=== PATIENT | male | born 1950 | race Caucasian/White ===

== ENCOUNTER 2025-07-14 09:31 | Outpatient (AMB) | payer MEDICARE, SELFPAY ==
--- OUTSIDE RECORDS SUMMARY | 2024-05-05 05:30 | XMS_ITS ---
Author Organization [facility] Address [address] [address] Care Team Providers Care Hot Braider Name Role Phone Michoacano Senior Primary Care Provider UnavailFRANCY Hoyt Unavailable [phone] REASON FOR VISIT 1 month f/u Encounters Encounter Location Date Provider Diagnosis [facility] [address] [address] 05/05/2024 FRANCY ALVES Plan Of Treatment No Information Progress Notes * OWENSJoby Saini CDOB:[birth year] (74 yo M)Acc No.[id number]:05/05/2024 Progress Note Patient: Joby PALUMBO Provider: Lisseth Egan DPJoseph :1950 A ge:73 Y S ex:Male Date:05/05/2024 Phone: Address:[address] Pcp:Michoacano Senior Subjective: * Chief Complaints: * 1 . 1 month f/u. * Medical History: Objective: * Vitals: Assessment: Plan: * Treatment: * Billing Information: * Visit Code: * Procedure Codes: * Electronic signature of Dilan GUERREROPShikha on 07/14/2025 at 10:37 AM EDT Sign off status: Pending * Provider: Lisseth Egan DPM Date: 05/05/2024 Generated for Adriennei ng/Faxing/eTransmitting on: 07/14/2025 10:37 AM EDT
--- NOTE | 2025-07-14 09:28 | MHC.OFFVIS ---
Intake Visit Reasons: BPH urinary incontinence Intake Note: New Patient is present for urinary incontinence /BPH Urology Rx:Tamsulosin PVR:0 mls Blood Thinners:none Supervisor Glycerin Required: No Accompanied by: Self / Same As Patient Allergies duloxetine (From Cymbalta) Allergy (Mild, Verified 07/14/25 09:51) Unknown HPI Comments Details: Joby is a pleasant male. He is a patient of Dr. Durant. He is seen for the following urologic conditions - chronic pelvic floor pain - lower urinary tract symptoms Complicated patient Pelvic floor dysfunction Looking for obturator internus Botox injection Receives 200 units Botox for occipital migraines every three-month Discussed efficacy of pelvic floor Botox approximately 200 units Given current situation with inability to certain on hard surfaces and pelvic floor discomfort there is minimal risk to pelvic floor Botox Chronic pelvic floor pain Evaluated with [facility] Referred for pelvic floor physical therapy Has persistent obturator internus tightness Was recommended pelvic floor Botox Lower urinary tract symptoms Urinary urgency with weakness of stream On tamsulosin through [facility] Has episodes of dizziness Did discuss potential use of alfuzosin Was unable to tolerate this in the past secondary to the size of the tablets Would be suitable candidate for transurethral incision of the prostate Maximum Botox every 3 months per prescribing information 400 units Will organize pelvic floor Botox electrode stimulation, ultrasound guide Review of Systems Const Denies chills and Denies fever(s) Card Reports no additional complaints and Denies syncope Resp Denies cough GI Denies abdominal pain and Denies heartburn Reports as per HPI and Denies change in libido Neuro Denies syncope Psych Denies change in libido Endo Denies change in libido Physical Exam Const General: cooperative, healthy appearing, comfortable and no acute distress Orientation/consciousness: patient oriented x3 HEENT Face and sinus: Yes normal facial exam Mouth: moist mucous membranes Neck Neck: Yes normal visual inspection, Yes full ROM and Yes trachea midline Chest Chest palpation & inspection: normal inspection of the chest Resp Effort & Inspection: normal respiratory effort, able to speak in complete sentences and no respiratory distress GI Inspection: Yes normal to inspection Back/Spine/Pelvis Cervical Spine: normal cervical lordosis Thoracic/Lumbar Spine: thoracic and lumbar spine normal to inspection Skin General skin exam: no rashes or lesions noted Neuro General: patient oriented x3, gait normal, tone normal and moves all extremities Extrem General: Yes normal to inspection and Yes capillary refill normal Assessment & Plan Assessment & Plan (1) Chronic prostatitis/chronic pelvic pain syndrome: Code(s): N41.1 - Chronic prostatitis; G89.4 - Chronic pain syndrome Category: Medical (2) Weak urinary stream: Code(s): R39.12 - Poor urinary stream Category: Medical Plan Risks, benefits and alternatives to therapy were discussed. These include but are not limited to infection, bleeding, damage to local organs and tissues, need for further interventions. Anesthetic risks regarding cardiac arrhythmia, blood clots, and potential mortality were discussed. The patient understands the typical recovery time and the outpatient nature of the procedure. After consideration of these risks the patient gives full informed consent and they wish to move ahead with the procedure. - obturator internus pelvic floor injection with pudendal canal Patient Instructions: This note is constructed using voice recognition software. While every effort has been made to ensure accuracy pit steward errors may have been included. Imaging studies, laboratory and physical exam results were discussed and reviewed in detail. No major barriers to patient understanding were identified. An opportunity to ask questions regarding the treatment plan was provided. All questions were answered. The patient expressed understanding and agreement with the above treatment plan. The patient is aware they should contact our office by phone for worsening of their current condition or the appearance of new urologic symptoms. Compliance is encouraged with any medications and followup testing that is ordered. It is a privilege to participate in the urologic care of your patient. If you have any questions or concerns regarding treatment for the above conditions, or other urologic issues, please do not hesitate to contact me. The office telephone contact is [phone]. Sincerely, Dr Aaron Starkey MD, [facility] - [facility]rology Compassionate Specialist Care for the Genitourinary System Coding Level of Care Code New Pt Level 4 (28849) Diagnoses Chronic prostatitis/chronic pelvic pain syndrome N41.1; G89.4 Weak urinary stream R39.12
--- OUTSIDE RECORDS SUMMARY | 2025-07-14 10:37 | XMS_ITS | Encounter Summary ---
Author Organization [facility], Address [address] [place] [address] Phone Care Team Providers Care Cnc Lathe Machinist Name Role Phone Michoacano Lee MD Primary Care Provider [phone] Encounter Details Date Type Department Care Team (Late st Contact Info) Description 06/19/2023 Documentation Only [facility], [address] [place] [phone] Michoacano Lee MD [address] Social History Tobacco Use Types Packs/Day Years Used Date Smoking Tobacco: Never Assessed Sex and Gender Information Value Date Recorded Sex Assigned at Not on file Legal Sex Male 2:03 PM EST Gender Identity Not on file Sexual Orientation Not on file documented as of this encounter Plan of Treatment Not on file documented as of this encounter Visit Diagnoses Not on filedocumented in this encounter Care Teams Cnc Lathe Machinist Relationship Specialty Start Date End Date Michoacano Lee MD [place] [address] PCP - General Internal Medicine 01/25/22 documented as of this encounter
--- OUTSIDE RECORDS SUMMARY | 2025-07-14 10:37 | XMS_ITS | Clinical Summary ---
Author Organization [facility] Address [address] [place] [address] Care Team Providers Care Furnace Operator Name Role Phone Michoacano Lee MD Primary Care Provider [phone] Allergies Active Allergy Reactions Criticality Noted Date Comments Celecoxib Nausea Only,Other (S ee Comments) Medium 10/24/2019 epigastric pain if taken more often Epigastric pain Cephalexin Other (See Comments) Medium 10/24/2019 Other reaction(s): epigastric pain Epigastric pain Duloxetine Hcl 06/01/2023 seizure Tetracycline Other (See Comments) Medium 10/24/2019 Other reaction(s): GI bleed GI bleed Medications Medication Sig Dispensed Refills Start Date End Date Status predniSONE (DELTASONE) 1 MG tablet Take 1 tablet (1 mg total) by mouth daily. 90 tablet 3 06/01/2023 Active omeprazole (PriLOSEC) 40 MG capsule Take 1 capsule (40 mg total) by mouth. 0 01/08/2022 Active oxyCODONE (ROXICODONE) 5 MG immediate release tablet 0 01/08/2022 Active timolol (TIMOPTIC) 0.5 % ophthalmic solution 0 11/28/2021 Active zolpidem (AMBIEN) 10 MG tablet 0 09/20/2020 Active clonazePAM (KlonoPIN) 0.5 MG tablet Take 1 tablet (0.5 mg total) by mouth. 0 01/08/2022 Active latanoprost (XALATAN) 0.005 % ophthalmic solution 0 05/02/2023 Active tamsulosin (FLOMAX) 0.4 MG CAPS Take 1 capsule (0.4 mg total) by mouth. 0 12/04/2021 Active Social History Tobacco Use Types Packs/Day Years Used Date Smoking Tobacco: Never Smokeless Tobacco: Never Tobacco Cessation:Counseling Given: Not Answered Alcohol Use Standard Drinks/Week Comments Never 0 (1 standard drink = 0.6 oz pur e alcohol) Sex and Gender Information Value Date Recorded Sex Assigned at Not on file Gender Identity Not on file Sexual Orientation Not on file Job Start Date Occupation Industry Not on file Not on file Not on file Last Filed Vital Signs Vital Sign Reading Time Taken Comments Blood Pressure 143/92 08/30/2023 3:42 PM EDT Pulse 82 08/30/2023 3:42 PM EDT Temperature - - Respiratory Rate 16 08/30/2023 3:42 PM EDT Oxygen Saturation - - Inhaled Oxygen Concentration - - Weight 70.3 kg (155 lb) 08/30/2023 3:42 PM EDT Height 180.3 cm (5' 11 ) 08/30/2023 3:42 PM EDT Body Mass Index 21.62 08/30/2023 3:42 PM EDT Plan of Treatment Health Maintenance Due Date Last Done Comments Hepatitis C Screening 1949 Depression Screening 1961 Preventative Health Evaluation 1967 DTap / Tdap / Td (1 - Tdap) 1968 Colon Cancer Screening (Colonoscopy) 1994 Fall Risk Assessment 2014 Pneumococcal Vaccine (1 of 1 - PCV) 2014 COVID-19 Vaccine (4 - 2023-2 5 season) 2024 09/12/2021, 02/13/2021, 01/23/2021 RSV Adult > 60+ Yrs or (1 - 1-dose 75+ series) 2024 Influenza Vaccine (#1) 2025 08/27/2021 Shingrix-Zoster Vaccine Completed 10/18/20 18, 07/19/2018 Hepatitis B Vaccines Aged Out No long er eligible based on patient's age to complete this topic RSV Ped < 20 months Aged Out No longe r eligible based on patient's age to complete this topic Care Teams Furnace Operator Relationship Specialty Start Date End Date Michoacano Lee MD [address] [place] [address] PCP - General Bean Sorter 06/01/23
--- OUTSIDE RECORDS SUMMARY | 2025-07-14 10:37 | XMS_ITS | Clinical Summary ---
Author Organization formerly [facility] Address [address] [place] [address] Care Team Providers Care Linux Systems Engineer Name Role Phone Michoacano Senior MD Primary Care Provider [phone] Rashel Cisneros [phone] Allergies Active Allergy Reactions Criticality Noted Date Comments Celecoxib Other (see comments) Medium 10/24/2019 Epigastric pain Cephalexin Other (see comments) Medium 10/24/2019 Epigastric pain Tetracycline Other (see comments) Medium 10/24/2019 GI bleed Medications oxyCODONE (ROXICODONE) 5 mg immediate release tablet oxycodone 5 mg tablet Active tamsulosin (FLOMAX) capsule tamsulosin 0.4 mg capsule Active clonazePAM (KlonoPIN) 0.5 mg tablet clonazepam 0.5 mg tablet Active betamethasone dipropionate 0.05 % lotion betamethasone dipropionate 0.05 % lotion Active EPICERAM lotion APPLY TO THE AFFECTED AREA(S) TWICE DAILY 5 06/03/20 19 Active gabapentin (NEURONTIN) 100 mg capsule Take 100 mg by mouth 4 (four) times a day. 100mg qid and 300mg at night Active timolol (BETIMOL) 0.5 % ophthalmic solution 1 drop 2 (two) times a day. Active gabapentin (NEURONTIN) 300 mg capsule Take 2 tb TID 180 capsule 2 10/27/20 19 Active tamsulosin (FLOMAX) capsule tamsulosin 0.4 mg capsule Active gabapentin (NEURONTIN) 100 mg capsule gabapentin 100 mg capsule Active oxyCODONE (ROXICODONE) 5 mg immediate release tablet oxycodone 5 mg tablet Active timolol (TIMOPTIC) 0.5 % ophthalmic solution timolol maleate 0.5 % eye drops Active VIVLODEX 5 mg capsule 09/10/20 19 Active sucralfate (CARAFATE) 1 gram tablet sucralfate 1 gram tablet prn Active betamethasone dipropionate 0.05 % lotion betamethasone dipropionate 0.05 % lotion Active betamethasone dipropionate (DIPROLENE) 0.05 % cream 01/05/20 20 Active ondansetron ODT (ZOFRAN-ODT) 4 mg disintegrating tablet 01/11/20 20 Active diazePAM (VALIUM) 5 mg tablet 03/25/20 20 Active zolpidem (AMBIEN) 10 mg tablet 09/20/20 Active varicella-zoster, recombinant, (SHINGRIX) 50 mcg/0.5 mL suspension for reconstitution vaccine Shingrix (PF) 50 mcg/0.5 mL intramuscular suspension, kit Active diclofenac sodium (VOLTAREN) 1 % gel diclofenac 1 % topical gel Active meloxicam (MOBIC) 15 mg tablet meloxicam 15 mg tablet Active Active Problems Problem Noted Date Diagnosed Date Neuropathy 10/24/2019 Family History Medical History Relation Comments Heart disease Father Stroke Father Cancer Mother Diabetes Paternal Grandmother Relation Status Comments Father Mother Paternal Grandmother Social History Tobacco Use Types Packs/Day Years Used Date Smoking Tobacco: Never Smokeless Tobacco: Never Comments:college Alcohol Use Standard Drinks/Week Comments Yes 0 (1 standard drink = 0.6 oz pur e alcohol) Sex and Gender Information Value Date Recorded Sex Assigned at Not on file Legal Sex Male 2:12 AM EST Gender Identity Not on file Sexual Orientation Not on file 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 file Not on file Not on file Last Filed Vital Signs Vital Sign Reading Time Taken Comments Blood Pressure 130/80 11/05/2019 12:57 PM EST Pulse 91 11/05/2019 12:57 PM EST Temperature - - Respiratory Rate - - Oxygen Saturation - - Inhaled Oxygen Concentration - - Weight 72.6 kg (160 lb) 01/28/2020 1:06 PM EST Height 180.3 cm (5' 11 ) 01/28/2020 1:06 PM EST Body Mass Index 22.32 01/28/2020 1:06 PM EST Plan of Treatment Health Maintenance Due Date Last Done Comments CT Colonography 1949 Colonoscopy 1949 Colorectal Cancer Screening 1949 FIT-DNA (Cologuard) 1949 FIT 1949 FOBT 1949 Flex Sigmoidoscopy - 5y 1949 HIV Screening 1949 DTaP,Tdap,and Td Vaccines (1 - Tdap) 1967 Pneumococcal Vaccine, 50+ Years (1 of 1 - PCV) 1999 COVID-19 Vaccine (4 - 2023-2 5 season) 2024 09/12/2021, 02/13/2021, 01/23/2021 Influenza Vaccine (#1) 2025 08/27/2021 Zoster Vaccines Completed 10/18/2018, 07/19/2018 HPV Vaccines Aged Out No longer eligi ble based on patient's age to complete this topic Hepatitis A Vaccines Aged Out No long er eligible based on patient's age to complete this topic Meningococcal Vaccine Aged Out No laura tyrell eligible based on patient's age to complete this topic Insurance [employer] MEDICARE PPO [facility] Care Teams Linux Systems Engineer Relationship Specialty Start Date End Date Michoacano Senior MD [address] [id number] PCP - General Internal Medicine 06/19/19 Rashel Cisneros [address] [facility] [address] [place] [address] 10/09/19
--- OUTSIDE RECORDS SUMMARY | 2025-07-14 10:37 | XMS_ITS | Clinical Summary ---
Author Organization [facility] Address [address] [place] [address] Phone Care Team Providers Care Lead Developer Name Role Phone Michoacano Senior MD Primary Care Provider [phone] Allergies Active Allergy Reactions Criticality Noted Date Comments Celecoxib Nausea Only,Unknown Medium 10/24/2019 epigastric pain if taken more often Epigastric pain Cephalexin Unknown Medium 10/24/2019 Other reaction(s): epigastric pain Epigastric pain Duloxetine Hcl 06/01/2023 seizure Tetracycline Unknown Medium 10/24/2019 Other reaction(s): GI bleed GI bleed Medications clonazePAM (KlonoPIN) 0.5 mg tablet Take 1 tablet (0.5 mg total) by mouth. 01/08/20 22 Active latanoprost (XALATAN) 0.005 % ophthalmic solution 05/02/20 23 Active omeprazole (PriLOSEC) [address] capsule Take 1 capsule (40 mg total) by mouth. 01/08/20 22 Active oxyCODONE (ROXICODONE) 5 mg immediate release tablet 01/08/20 22 Active predniSONE (DELTASONE) 1 mg tablet Take 1 tablet (1 mg total) by mouth 1 (one) time each day. 06/01/20 23 Active tamsulosin (FLOMAX) 0.4 mg 24 hr capsule Take 1 capsule (0.4 mg total) by mouth. 12/04/19 22 Active timolol (TIMOPTIC) 0.5 % ophthalmic solution 11/28/19 22 Active zolpidem (AMBIEN) 10 mg tablet 09/20/20 Active azelastine (ASTELIN) 137 mcg (0.1 %) nasal spray 01/17/20 Active onabotulinumtoxinA (BOTOX) 200 unit injection See Instructions, For IM injection for bruxism, # 1 kit, 3 Refills, Maintenance, 10/11/23 11:18:00 EST, [facility], Partial fill upon patient request if the prescription is for a schedule II opioid drug., 180, cm, 10/11/23 10:22:00 ES... 10/11/20 Active ondansetron ODT (ZOFRAN-ODT) 4 mg disintegrating tablet 01/11/20 Active sucralfate (CARAFATE) 1 gram tablet Take 1 tablet (1 g total) by mouth. Active aspirin 81 mg chewable tablet Chew 1 tablet (81 mg total) 1 (one) time each day. Active Immunizations Name Administration Dates Next Due [employer] SARS-CoV-2 COVID-19, mRNA, LNP-S, preservative free 09/12/2021,02/13/2021,01/23/2021 Surgical History Surgery Date Site/Laterality Comments TOTAL SHOULDER ARTHROPLASTY 2021 PROCEDURE:TOTAL SHOULDER REPLACEMENT OTHER SURGICAL HISTORY 10/2011 PROCEDURE:finger joint replacement FINGER HERNIA REPAIR KNEE ARTHROSCOPY Medical History Medical History Date Comments Stomach ulcer DX:Stomach ulcer Anxiety DX:Anxiety Cataracts, bilateral DX:Cataract s, bilateral Epilepsy ([facility] V24, [facility] V28) DX:Epilepsy ([facility]) Depression DX:Depression Glaucoma DX:Glaucoma History of blood clots DX:Histor y of blood clots Vertigo DX:Vertigo Seizure ([facility] V24, [facility] V28) DX:Seizure ([facility]);COMMENT:01/17 and 01/18 Vestibular migraine Ocular migraine Meniere disease Arthritis Seizures ([facility] V24, [facility] V28) Hyponatremia GERD (gastroesophageal reflux disease) Bleeding ulcer BPH (benign prostatic hyperplasia) Social History Tobacco Use Types Packs/Day Years Used Date Smoking Tobacco: Never Smokeless Tobacco: Never Alcohol Use Standard Drinks/Week Comments Never 0 (1 standard drink = 0.6 oz pur e alcohol) Interpersonal Safety Answer Date Record ed Physical Abuse 12/15/2024 Verbal Abuse 12/15/2024 Sex and Gender Information Value Date Recorded Sex Assigned at Male 12/04/2024 12:11 PM EST Legal Sex Male 8:52 AM EST Gender Identity Male 12/04/2024 12:11 PM EST Sexual Orientation Straight 12/04/2024 12 :11 PM EST Obstetrics History Last Filed Vital Signs Vital Sign Reading Time Taken Comments Blood Pressure 142/89 12/15/2024 11:04 AM EST Pulse 73 12/15/2024 11:04 AM EST Temperature 36.6 C (97.8 F) 12/15/2024 10:44 AM EST Respiratory Rate 14 12/15/2024 11:04 AM EST Oxygen Saturation 99% 12/15/2024 11:04 AM EST Inhaled Oxygen Concentration - - Weight 65.8 kg (145 lb) 12/15/2024 10:10 AM EST Height 180.3 cm (5' 11 ) 12/15/2024 10:10 AM EST Body Mass Index 20.22 12/15/2024 10:10 AM EST Plan of Treatment Health Maintenance Due Date Last Done Comments DTaP,Tdap,and Td Vaccines (1 - Tdap) 1968 Pneumococcal Vaccine: 50+ Years (1 of 1 - PCV) 1999 Cholesterol Screening (Lipid Panel) 10/29/2022 Falls Risk Assessment 10/29/2022 Hepatitis C Screening 10/29/2022 Medicare Annual Wellness Visit 10/29/2022 Social Influencers of Health Screening 10/29/2022 COVID-19 Vaccine (2023- season) 2024 10/17/2022, 03/31/2022, 09/12/2021, Additional history exists RSV Immunization Adult Patients (1 - 1-dose 75+ series) 2024 Depression Screening 11/26/2024 Influenza Vaccine (#1) 2025 , 09/03/2023, 09/14/2022, Additional history exists Colorectal Cancer Screening: Colonoscopy 12/15/2034 12/15/2024 Zoster Vaccines Completed 10/18/2018, 07/19/2018 HIB Vaccines Aged Out No longer eligi ble based on patient's age to complete this topic HPV Vaccines Aged Out No longer eligi ble based on patient's age to complete this topic Hepatitis A Vaccines Aged Out No long er eligible based on patient's age to complete this topic Hepatitis B Vaccines Aged Out No long er eligible based on patient's age to complete this topic IPV Vaccines Aged Out No longer eligi ble based on patient's age to complete this topic MMR Vaccines Aged Out No longer eligi ble based on patient's age to complete this topic Meningococcal ACWY Vaccine Aged Out N o longer eligible based on patient's age to complete this topic Meningococcal B Vaccine Aged Out No l onger eligible based on patient's age to complete this topic RSV Immunization Patients Under 20 months Aged Out No longer eligible based on patient's age to complete this topic Varicella Vaccines Aged Out No longer eligible based on patient's age to complete this topic Procedures Procedure Name Priority Date/Time Associated Diagnosis Comments COLONOSCOPY Routine 12/15/2024 10:43 AM EST Screen for colon cancer from Last 3 Months or Most Recently Relevant to Health Maintenance Results * COLONOSCOPY Anesthesia - MAC; [facility] ENDOSCOPY (12/15/2024 10:43 AM EST) Anatomical Region Laterality Modality Endoscopy 12/15/2024 10:0 7 AM EST Impressions 12/15/2024 10:44 AM EST - Diverticulosis in the left colon. - Non-bleeding internal hemorrhoids. - The examination was otherwise normal on direct and retroflexion views. - No specimens collected. Recommendation: - Discharge patient to home. - High fiber diet. - Continue present medications. - Return to my office PRN. Narrative 12/15/2024 10:44 AM EST [facility] GI Patient Name: Joby Owens Procedure Date: 12/15/2024 10:07 AM Date of : 1950 Age: 74 Room: ROOM 15 Gender: Male Note Status: Finalized Attending MD: Pierce Dela Cruz MD, Procedure Date No Time: 12/15/2024 Procedure: Colonoscopy Indications: Screening for colorectal malignant neoplasm Providers: Pierce Dela Cruz MD Referring MD: Pierce Dela Cruz MD Medicines: Monitored Anesthesia Care Complications: No immediate complications. Estimated Blood Loss: Estimated blood loss: none. Procedure: Pre-Anesthesia Assessment: - ASA Grade Assessment: III - A patient with severe systemic disease. - After reviewing the risks and benefits, the patient was deemed in satisfactory condition to undergo the procedure. After I obtained informed consent, the scope was passed under direct vision. Throughout the procedure, the patient's blood pressure, pulse, and oxygen saturations were monitored continuously.The Colonoscope was introduced through the anus and advanced to the cecum, identified by appendiceal orifice and ileocecal valve. The colonoscopy was performed without difficulty. The patient tolerated the procedure well. The quality of the bowel preparation was good. Findings: Multiple small and large-mouthed diverticula were found in the left colon. Non-bleeding internal hemorrhoids were found during retroflexion. The hemorrhoids were medium-sized. The exam was otherwise without abnormality on direct and retroflexion views. Procedure Code(s): --- Professional --- 15392, Colonoscopy, flexible; diagnostic, including collection of specimen(s) by brushing or washing, when performed (separate procedure) Diagnosis Code(s): --- Professional --- Z12.11, Encounter for screening for malignant neoplasm of colon CPT copyright 2020 [employer]. All rights reserved. The codes documented in this report are preliminary and upon delivery crew member review may be revised to meet current compliance requirements. Pierce Dela Cruz MD 12/15/2024 10:44:04 AM This report has been signed electronically.Pierce Dela Cruz MD Number of Addenda: 0 Note Initiated On: 12/15/2024 10:07 AM Scope In: Scope Out: Endoscopy Department at [facility] - [address] [place] [id number] Procedure Note Pierce Dela Cruz MD - 12/15/2024 [facility] GI Patient Name: Joby Owens Procedure Date: 12/15/2024 10:07 AM Date of : 1950 Age: 74 Room: ROOM 15 Gender: Male Note Status: Finalized Attending MD: Pierce Dela Cruz MD, Procedure Date No Time: 12/15/2024 Procedure: Colonoscopy Indications: Screening for colorectal malignant neoplasm Providers: Pierce Dela Cruz MD Referring MD: Pierce Dela Cruz MD Medicines: Monitored Anesthesia Care Complications: No immediate complications. Estimated Blood Loss: Estimated blood loss: none. Procedure: Pre-Anesthesia Assessment: - ASA Grade Assessment: III - A patient with severe systemic disease. - After reviewing the risks and benefits, thepatient was deemed in satisfactory condition to undergo the procedure. After I obtained informed consent, the scope was passed under direct vision. Throughout theprocedure, the patient's blood pressure, pulse, and oxygen saturations were monitored continuously.The Colonoscope was introduced through the anus and advanced to the cecum, identified by appendiceal orifice and ileocecal valve. The colonoscopy was performed without difficulty. The patient tolerated the procedure well. The quality of the bowel preparation was good. Findings: Multiple small and large-mouthed diverticula were found in the left colon. Non-bleeding internal hemorrhoids were found during retroflexion. The hemorrhoids were medium-sized. The exam was otherwise without abnormality ondirect and retroflexion views. Procedure Code(s): --- Professional --- 13549, Colonoscopy, flexible; diagnostic, including collection of specimen(s) by brushing or washing,when performed (separate procedure) Diagnosis Code(s): --- Professional --- Z12.11, Encounter for screening for malignantneoplasm of colon CPT copyright 2020 [employer]. All rights reserved. The codes documented in this report are preliminary and upon delivery crew member reviewmay be revised to meet current compliance requirements. Pierce Dela Cruz MD 12/15/2024 10:44:04 AM This report has been signed electronically.Pierce Dela Cruz MD Number of Addenda: 0 Note Initiated On: 12/15/2024 10:07 AM Scope In: Scope Out: Endoscopy Department at [facility] - [address] [place] [id number] IMPRESSION: - Diverticulosis in the left colon. - Non-bleeding internal hemorrhoids. - The examination was otherwise normal on directand retroflexion views. - No specimens collected. Recommendation: - Discharge patient to home. - High fiber diet. - Continue present medications. - Return to my office PRN. us Pierce Dela Cruz MD GI~PROCEDURE ORDERABLES Final Result from Last 3 Months or Most Recently Relevant to Health Maintenance Insurance [employer] MEDICARE [employer]VANTAGE Care Teams Lead Developer Relationship Specialty Start Date End Date Michoacano Senior MD [address] [place] [address] PCP - General 06/01/23
--- OUTSIDE RECORDS SUMMARY | 2025-07-14 10:37 | XMS_ITS | Clinical Summary ---
Author Organization [facility] Address [address] [place] [address] Care Team Providers Care Live Games Dealer Name Role Phone Michoacano Lee MD Primary Care Provider [phone] Social History Tobacco Use Types Packs/Day Years Used Date Smoking Tobacco: Never Assessed Sex and Gender Information Value Date Recorded Sex Assigned at Not on file Legal Sex Male 12:47 AM EDT Gender Identity Not on file Sexual Orientation Not on file Plan of Treatment Health Maintenance Due Date Last Done Comments Hepatitis C Virus Screening 1950 DTaP/Tdap/Td Vaccines (1 - Tdap) 1968 Pneumococcal Vaccines 50+ (1 of 1 - PCV) 1999 Zoster (Shingles) Vaccine (1 of 2) 1999 COVID-19 Vaccine ( - 2023-2 5 season) 2024 RSV Vaccine 60 years and old er and Patients (1 - 1-dose 75+ series) 2024 Hepatitis B Vaccines Aged Out No long er eligible based on patient's age to complete this topic Care Teams Live Games Dealer Relationship Specialty Start Date End Date Michoacano Lee MD [address] [place] [id number] PCP - General Internal Medicine 03/01/23
== END 2025-07-14 10:28 | disposition home or self-care (01) ==
LOC: HO.HUSH 09:32
PROVIDERS: Visit Provider Urology
DX: N41.1 Chronic prostatitis (principal); G89.4 Chronic pain syndrome; R39.12 Poor urinary stream; Z13.9 Encounter for screening, unspecified
CPT/HCPCS: 99204

== ENCOUNTER → 2025-07-14 09:31 | Outpatient (BNVA) | payer MEDICARE, SELFPAY | PROVIDERS: Visit Provider Urology | DX: N41.1 Chronic prostatitis (principal); G89.4 Chronic pain syndrome; R39.12 Poor urinary stream | CPT/HCPCS: 51798; 81003; 99202 ==

== ENCOUNTER 2025-09-28 08:15 | Day surgery (SDC) | payer MEDICARE, SELFPAY ==
--- OUTSIDE RECORDS SUMMARY | 2024-04-04 07:00 | XMS_ITS ---
Author Organization [facility] Address [address] [place] [address] Care Team Providers Care Oracle Endeca Consultant Name Role Phone Michoacano Senior Primary Care Provider UnavailFRANCY Hoyt Unavailable [phone] Allergies Allergen (clinical drug ingredient) Drug/Non Drug Allergy documented on EMR Reaction Allergy Type Onset Date Status duloxetine Cymbalta Unknown Drug Allergy Active levetiracetam Keppra Unknown Drug Allergy Act carolann meclizine Meclizine HCl Unknown Drug Allergy Act carolann REASON FOR VISIT B/L cortisone injection Medications Medication SIG (Take, Route, Frequency, Duration) Notes Start Date End Date Status Lidocaine 5 % APPLY 1 PATCH ONCE A DAY EXTERNALLY TO BOTH FEET AND REMOVE AFTER 12 HOURS; Duration: 30 Not-Taking KlonoPIN Not-Taking Tamsulosin HCl 0.4 MG 1 capsule Orally O nce a day Not-Taking oxyCODONE-Acetaminophen 5-325 MG 1 tablet as needed Orally every 6 hrs Active predniSONE 1 MG 1 tablet Orally Once a day; Duration: 90 days 04/13/2023 Active Omeprazole 40 MG 1 capsule 30 minutes before morning meal Orally Once a day Active Timolol Maleate 0.5 % 1 drop into affect ed eye Ophthalmic Once a day Active clonazePAM 0.5 MG 1 tablet at bedtime Orally Once a day Active Latanoprost-Timolol Maleate 0.005-0.5 % 1 drop into affected eye Ophthalmic Once a day Active Ambien 10 MG 1 tablet at bedtime as needed Orally Once a day Active Vital Signs Temperature 96.6 degrees Fahrenheit 04/04/20 Heart Rate 68 /min 04/04/2024 Respiratory Rate 20 /min 04/04/2024 Height 71in in 04/04/2024 Weight 153.5 lbs 04/04/2024 BMI 21.41 kg/m2 04/04/2024 Encounters Encounter Location Date Provider Diagnosis [facility] [address] [facility] [place] [place] [address] 04/04/2024 FRANCY ALVES Plan Of Treatment No Information Progress Notes * Joby OWENS CDOB:[birth year] (74 yo M)Acc No.[id number]:04/04/2024 Progress Note Patient: Joby PALUMBO Provider: Lisseth Egan DPJoseph :1950 A ge:73 Y S ex:Male Date:04/04/2024 Phone: Address:[facility] [address], [id number] Pcp:Michoacano Senior Subjective: * Chief Complaints: * 1 . B/L cortisone injection. 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 SSNI stopped. ? chronic underlying hyponatremia 2021, Pulmonary Embolism and Deep Vein thrombosis ? provoked from shoulder surgery. 2021, COVID vaccinated X 5 ([employer]), Peripheral neuropathy-unknown origin of extremities, Vestibular migraines, Vertigo, hx of detached retina and vision changes. Ptosis of right eye. Light sensitivity, Facial nerve pain, Fatigue. 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 * Hospitalization/Major Diagno stic Procedure: s eizure due to hyponatremia 12/2021, PE and lower extremity DVT 05/2022, left shoulder replacement 04/2022, seizure 11/2023. * Family History: M other: , Rheumatoid Arthritis. * Social History: F ormer smoker-50yrs ago Alcohol use-1 beer/day No illicit drug use [facility]. Lives with . * Medications: T aking Ambien 10 MG Tablet 1 tablet at bedtime as needed Orally Once a day , Taking clonazePAM 0.5 MG Tablet 1 tablet at bedtime Orally Once a day , Taking Latanoprost-Timolol Maleate 0.005-0.5 % Solution 1 drop into affected eye Ophthalmic Once a day , Taking Omeprazole 40 MG Capsule Delayed Release 1 capsule 30 minutes before morning meal Orally Once a day , Taking Timolol Maleate 0.5 % Solution 1 drop into affected eye Ophthalmic Once a day , Taking oxyCODONE-Acetaminophen 5-325 MG Tablet 1 tablet as needed Orally every 6 hrs , Taking predniSONE 1 MG Tablet 1 tablet Orally Once a day , Not-Taking Tamsulosin HCl 0.4 MG Capsule 1 capsule Orally Once a day , Not-Taking Lidocaine 5 % Patch APPLY 1 PATCH ONCE A DAY EXTERNALLY TO BOTH FEET AND REMOVE AFTER 12 HOURS , Not-Taking KlonoPIN , Medication List reviewed and reconciled with the patient * Allergies: C ymbalta, Keppra, Meclizine HCl. Objective: * Vitals: W t:153.5lbs, Ht: 71in, BMI:21.41Index, HR:68/min, Temp:96.6F, RR:20/min, Ht-cm: 180.34, Wt-k.63 kg. Assessment: Plan: * Treatment: * Billing Information: * Visit Code: * Procedure Codes: * Electronic signature of CALEB ALVES D.P.M. on 09/23/2025 at 05:55 PM EDT Sign off status: Pending * Provider: Lisseth Egan DPJoseph Date: 0 04/04/2024 Generated for Rhea barrera/Justice/Marisa on: 1 05:55 PM EDT
--- OUTSIDE RECORDS SUMMARY | 2024-05-05 05:30 | XMS_ITS ---
Author Organization [facility] Address [address] [address] Care Team Providers Care Adapted Physical Education Specialist Name Role Phone Michoacano Senior Primary Care Provider UnavailFRANCY Hoyt Unavailable [phone] REASON FOR VISIT 1 month f/u Encounters Encounter Location Date Provider Diagnosis [facility] [address] [address] 05/05/2024 FRANCY ALVES Plan Of Treatment No Information Progress Notes * OWENS Joby CDOB:[birth year] (74 yo M)Acc No.[id number]:05/05/2024 Progress Note Patient: Joby PALUMBO Provider: Lisseth Egan DPJoseph :1950 A ge:73 Y S ex:Male Date:05/05/2024 Phone: Address:[address] Pcp:Michoacano Senior Subjective: * Chief Complaints: * 1 . 1 month f/u. * Medical History: Objective: * Vitals: Assessment: Plan: * Treatment: * Billing Information: * Visit Code: * Procedure Codes: * Electronic signature of Dilan GUERREROPShikha on 09/23/2025 at 05:55 PM EDT Sign off status: Pending * Provider: Lisseth Egan DPM Date: 0 05/05/2024 Generated for Adriennei ng/Faxing/eTransmitting on: 1 05:55 PM EDT
--- NOTE | 2025-09-23 14:18 | HO.ANESPROP2 ---
Documented by User: Dixie Watts NP 09/23/25 14:19 HPI - Anesthesia Eval Consult details Narrative: 74 yr old male for Cystoscopy Bladder Botox Injection ?Elena's per PCP note 03/2025: pt reports ongoing dizziness PMFSH Active Problems Active Problems: All Active Problems Chronic prostatitis/chronic pelvic pain syndrome (Acute) Weak urinary stream (Acute) Past Medical History Medical History (Updated 09/24/25 @ 14:15 by Christy Nixon RN) Hyperlipidemia Difficulty swallowing GERD (gastroesophageal reflux disease) AAA (abdominal aortic aneurysm) without rupture Seizures HTN (hypertension) Hx of steroid therapy History of sigmoidoscopy Cerebral aneurysm Sleep apnea Hearing loss Insomnia Anxiety BPH (benign prostatic hyperplasia) Neuropathy DJD (degenerative joint disease) Surgical History Surgical History (Updated 09/24/25 @ 14:16 by Christy Nixon RN) Hx of melanoma excision Hx of bilateral cataract extraction History of left shoulder replacement History of release of tendon Hx of detached retina repair History of esophagogastroduodenoscopy (EGD) H/O colonoscopy Social History Social History Patient Tobacco Use Status: Former Tobacco user Have you been hit, kicked, punched, or otherwise hurt by someone within the past year? If so, by whom?: No Are you DNR?: No Advance Directives: No Advance Directives Information Provided: Yes Meds Allergies Allergy/AdvReac Type Severity Reaction Status Date / Time duloxetine (From Cymbalta) Allergy Mild Unknown Verified 07/14/25 09:51 celecoxib (From Celebrex) Allergy Abdominal Verified 09/24/25 10:39 Pain cephalexin Allergy Abdominal Verified 09/24/25 10:39 Pain tetracycline Allergy Gastrointestinal Verified 09/24/25 10:39 Hemorrhage Home Medications ?Medication ?Instructions ?Recorded ?Confirmed ?Last Taken ?Type aspirin 81 mg tablet,delayed 81 mg PO DAILY 07/14/25 09/24/25 09/09/25 History release (Adult Low Dose Aspirin) latanoprost 0.005 % eye drops, 1 drp ophthalmic (eye) DAILY 07/14/25 09/24/25 Unknown History emulsion omeprazole 40 mg capsule,delayed 40 mg PO DAILY 07/14/25 09/24/25 Unknown History release ondansetron HCl 4 mg tablet 4 mg PO Q8H 07/14/25 09/24/25 Unknown History oxycodone 5 mg capsule 5 mg PO BID PRN Pain 07/14/25 09/24/25 Unknown History prednisone 1 mg tablet 1 mg PO DAILY 07/14/25 09/24/25 Unknown History tamsulosin 0.4 mg capsule 0.4 mg PO DAILY 07/14/25 09/24/25 Unknown History timolol 0.5 % eye drops 1 drp ophthalmic (eye) DAILY 07/14/25 09/24/25 Unknown History trazodone 50 mg tablet 50 mg PO DAILY 07/14/25 09/24/25 Unknown History zolpidem 10 mg tablet (Ambien) 10 mg PO BEDTIME 07/14/25 09/24/25 Unknown History clonazepam 0.5 mg tablet 0.5 mg PO BID PRN Anxiety 09/24/25 09/24/25 Unknown History sucralfate 1 gram tablet 1 g PO DAILY 09/24/25 09/24/25 Unknown History Documented by User: Jaiden Ceja MD 09/28/25 08:54 [facility] Past Medical History Medical History (Updated 09/24/25 @ 14:15 by Christy Nixon RN) Hyperlipidemia Difficulty swallowing GERD (gastroesophageal reflux disease) AAA (abdominal aortic aneurysm) without rupture Seizures HTN (hypertension) Hx of steroid therapy History of sigmoidoscopy Cerebral aneurysm Sleep apnea Hearing loss Insomnia Anxiety BPH (benign prostatic hyperplasia) Neuropathy DJD (degenerative joint disease) Functional capacity: independent ambulation Family History Family history of problems with anesthesia: No Surgical History Surgical History (Updated 09/24/25 @ 14:16 by Christy Nixon RN) Hx of melanoma excision Hx of bilateral cataract extraction History of left shoulder replacement History of release of tendon Hx of detached retina repair History of esophagogastroduodenoscopy (EGD) H/O colonoscopy History of Problems with Anesthesia: No Social History Social History Patient Tobacco Use Status: Former Tobacco user Have you been hit, kicked, punched, or otherwise hurt by someone within the past year? If so, by whom?: No Are you DNR?: No Advance Directives: No Advance Directives Information Provided: Yes Meds Allergies Allergy/AdvReac Type Severity Reaction Status Date / Time duloxetine (From Cymbalta) Allergy Mild Unknown Verified 07/14/25 09:51 celecoxib (From Celebrex) Allergy Abdominal Verified 09/24/25 10:39 Pain cephalexin Allergy Abdominal Verified 09/24/25 10:39 Pain tetracycline Allergy Gastrointestinal Verified 09/24/25 10:39 Hemorrhage Home Medications ?Medication ?Instructions ?Recorded ?Confirmed ?Last Taken ?Type aspirin 81 mg tablet,delayed 81 mg PO DAILY 07/14/25 09/24/25 09/09/25 History release (Adult Low Dose Aspirin) latanoprost 0.005 % eye drops, 1 drp ophthalmic (eye) DAILY 07/14/25 09/24/25 Unknown History emulsion omeprazole 40 mg capsule,delayed 40 mg PO DAILY 07/14/25 09/24/25 Unknown History release ondansetron HCl 4 mg tablet 4 mg PO Q8H 07/14/25 09/24/25 Unknown History oxycodone 5 mg capsule 5 mg PO BID PRN Pain 07/14/25 09/24/25 Unknown History prednisone 1 mg tablet 1 mg PO DAILY 07/14/25 09/24/25 Unknown History tamsulosin 0.4 mg capsule 0.4 mg PO DAILY 07/14/25 09/24/25 Unknown History timolol 0.5 % eye drops 1 drp ophthalmic (eye) DAILY 07/14/25 09/24/25 Unknown History trazodone 50 mg tablet 50 mg PO DAILY 07/14/25 09/24/25 Unknown History zolpidem 10 mg tablet (Ambien) 10 mg PO BEDTIME 07/14/25 09/24/25 Unknown History clonazepam 0.5 mg tablet 0.5 mg PO BID PRN Anxiety 09/24/25 09/24/25 Unknown History sucralfate 1 gram tablet 1 g PO DAILY 09/24/25 09/24/25 Unknown History Assessment and Plan Final Anesthetic Review Family History of Problems with Anesthesia: No History of Problems with Anesthesia: No NPO: Yes ASA Class: III Final Preanesthetic Review: No Changes in Pt Med Stat, Meds/Allgs Chart Reviewed, Consent Obtained/Reviewed and Anes Risks/Benef Reviewed Patient Risk: Low Procedure Risk: Low Anesthetic Plan Anesthetic Plan: GA Disposition: Standard PACU
--- OUTSIDE RECORDS SUMMARY | 2025-09-23 17:55 | XMS_ITS | Clinical Summary ---
Author Organization [facility] Address [address] [place] [address] Care Team Providers Care House Detective Name Role Phone Michoacano Senior MD Primary Care Provider [phone] Rashel Cisneros Allergies Active Allergy Reactions Criticality Noted Date [...] - PCV) 1999 COVID-19 Vaccine (4 - 2024-2 6 season) 2025 09/12/2021, 02/13/2021, 01/23/2021 Influenza Vaccine (#1) 2025 08/27/2021 Zoster Vaccines Completed 10/18/2018, 07/19/2018 HPV Vaccines Aged Out No longer eligi ble based on patient's age to complete this topic Hepatitis A Vaccines Aged Out No long er eligible based on patient's age to complete this topic Meningococcal Vaccine Aged Out No laura tyrell eligible based on patient's age to complete this topic Insurance [facility] MANAGED MEDICARE PPO [facility] Care Teams House Detective Relationship Specialty Start Date End Date Michoacano Senior MD [address] [id number] PCP - General Internal Medicine 06/19/19 [facility]neros [address] [facility] [address] [place] [address] 10/09/19
--- OUTSIDE RECORDS SUMMARY | 2025-09-23 17:55 | XMS_ITS | Encounter Summary ---
Author Organization [facility], Address [address] [place] [address] Phone Care Team Providers Care Sales Receptionist Name Role Phone Michoacano Lee MD Primary Care Provider [phone] Encounter Details Date Type Department Care Team (Late st Contact Info) Description 06/19/2023 Documentation Only [facility], [address] [place] [phone] Michoacano Lee MD [address] Social History Tobacco Use Types Packs/Day [...] on filedocumented in this encounter Care Teams Sales Receptionist Relationship Specialty Start Date End Date Michoacano Lee MD [facility] [address] PCP - General Internal Medicine 01/25/22 documented as of this encounter
--- OUTSIDE RECORDS SUMMARY | 2025-09-23 17:55 | XMS_ITS | Encounter Summary ---
Author Organization [facility], Address [address] [place] [address] Phone Care Team Providers Care Rinkman Name Role Phone Michoacano Lee MD Primary Care Provider [phone] Encounter Details Date Type Department Care Team (Late st Contact Info) Description 06/19/2023 Documentation Only [facility], [address] [place] [phone] Michoacano Lee MD [address] Social History Tobacco Use Types Packs/Day [...] on filedocumented in this encounter Care Teams Rinkman Relationship Specialty Start Date End Date Michoacano Lee MD [place] [facility] [address] PCP - General Internal Medicine 01/25/22 documented as of this encounter
--- OUTSIDE RECORDS SUMMARY | 2025-09-23 17:55 | XMS_ITS | Clinical Summary ---
Author Organization [facility] Address [address] [place] [address] Phone Care Team Providers Care Fabric Sourcer Name Role Phone Michoacano Senior MD Primary Care Provider [phone] Allergies Active Allergy Reactions Criticality Noted Date [...] kit, 3 Refills, Maintenance, 10/11/23 11:18:00 EST, [facility], Partial fill upon patient request [...] 1 (one) time each day. Active Immunizations Immunization Administration Dates Next Due Multispan SARS-CoV-2 COVID-19, mRNA, LNP-S, preservative free 09/12/2021,02/13/2021,01/23/2021 Surgical History Surgery Date Site/Laterality Comments TOTAL SHOULDER ARTHROPLASTY 2021 PROCEDURE:TOTAL SHOULDER REPLACEMENT OTHER SURGICAL HISTORY 10/2011 PROCEDURE:finger joint replacement FINGER HERNIA REPAIR KNEE ARTHROSCOPY Medical History Medical History Date Comments Stomach ulcer DX:Stomach ulcer Anxiety DX:Anxiety Cataracts, bilateral DX:Cataract s, bilateral Epilepsy ([facility] V24, [facility] V28) DX:Epilepsy ([facility]) Depression DX:Depression Glaucoma DX:Glaucoma History of blood clots DX:Histor y of blood clots Vertigo DX:Vertigo Seizure ([facility] V24, [facility] V28) DX:Seizure ([facility]);COMMENT:01/17 and 01/18 Vestibular migraine Ocular migraine Meniere disease Arthritis Seizures ([facility] V24, [facility] V28) Hyponatremia GERD (gastroesophageal reflux disease) Bleeding ulcer BPH (benign prostatic hyperplasia) Social History Tobacco Use Types Packs/Day Years Used Date Smoking Tobacco: Never Smokeless Tobacco: Never Alcohol Use Standard Drinks/Week Comments Never 0 (1 standard drink = 0.6 oz pur e alcohol) Interpersonal Safety Answer Date Record ed Physical Abuse Unrecognized value 12/15/2024 Verbal Abuse Unrecognized value 12/15/2024 Sex and Gender Information Value Date [...] 10/29/2022 Social Influencers of Health Screening 10/29/2022 RSV Immunization Adult Patients (1 - 1-dose 75+ series) 2024 Depression Screening 11/26/2024 COVID-19 Vaccine ( season) 2025 10/17/2022, 03/31/2022, 09/12/2021, Additional history exists Influenza Vaccine (#1) 2025 , 09/03/2023, 09/14/2022, [...] Maintenance Results * COLONOSCOPY Anesthesia - MAC; [facility] (12/15/2024 10:43 AM EST) Anatomical Region [...] office PRN. Narrative 12/15/2024 10:44 AM EST [facility] Patient Name: Joby Owens Procedure Date: [...] retroflexion views. Procedure Code(s): --- Professional --- 52416, Colonoscopy, flexible; diagnostic, including collection of specimen(s) by brushing or washing, when performed (separate procedure) Diagnosis Code(s): --- Professional --- Z12.11, Encounter for screening for malignant neoplasm of colon CPT copyright 2020 [employer]. All rights reserved. The codes documented in this report are preliminary and upon director of marketing communications review may be revised to meet current compliance requirements. Pierce Dela Cruz MD 12/15/2024 10:44:04 AM This report has been signed electronically.Pierce Dela Cruz MD Number of Addenda: 0 Note Initiated On: 12/15/2024 10:07 AM Scope In: Scope Out: Endoscopy Department at [facility] - [address] [place] [id number] Procedure Note Pierce Dela Cruz MD - 12/15/2024 [facility] Patient Name: Joby Owens Procedure Date: [...] retroflexion views. Procedure Code(s): --- Professional --- 58326, Colonoscopy, flexible; diagnostic, including collection of specimen(s) by brushing or washing,when performed (separate procedure) Diagnosis Code(s): --- Professional --- Z12.11, Encounter for screening for malignantneoplasm of colon CPT copyright 2020 [employer]. All rights reserved. The codes documented in this report are preliminary and upon director of marketing communications reviewmay be revised to meet current compliance requirements. Pierce Dela Cruz MD 12/15/2024 10:44:04 AM This report has been signed electronically.Pierce Dela Cruz MD Number of Addenda: 0 Note Initiated On: 12/15/2024 10:07 AM Scope In: Scope Out: Endoscopy Department at [facility] - [address] [place] [phone] IMPRESSION: - Diverticulosis in the left colon. [...] Maintenance Insurance [employer]ANTAGE Care Teams Fabric Sourcer Relationship Specialty Start Date End Date Michoacano Senior MD [address] [place] [address] PCP - General 06/01/23
--- OUTSIDE RECORDS SUMMARY | 2025-09-23 17:55 | XMS_ITS | Encounter Summary ---
Author Organization [facility], Address [address] [place] [address] Phone Care Team Providers Care Emergency Dispatch Operator Name Role Phone Michoacano Lee MD Primary Care Provider [phone] Encounter Details Date Type Department Care Team (Late st Contact Info) Description 06/19/2023 Documentation Only [facility], [address] [place] [id number] Michoacano Lee MD [address] Social History Tobacco Use Types Packs/Day [...] on filedocumented in this encounter Care Teams Emergency Dispatch Operator Relationship Specialty Start Date End Date Michoacano Lee MD [employer] [address] PCP - General Internal Medicine 01/25/22 documented as of this encounter
--- OUTSIDE RECORDS SUMMARY | 2025-09-23 17:55 | XMS_ITS | Data Portability ---
Author Organization [place] - [facility], Allergy Address [address] [place] [address] Care Team Providers Care Tow Driver Name Role Phone QUIANA WILLIAM Primary Care Provider Assessment Encounter Date Assessment Date Assessment LastModified by Organization Details LastModified Time 09/24/2024 09/24/2024 73-year-old male presents for evaluation of M ni re's. Otologic exam is unremarkable today. Audiometric testing was updated today showing persistent severe hearing loss on the left side and moderate to sloping severe hearing loss on the left which is stable when compared to previously obtained results. Would not recommend steroid therapy at this time as it seems his hearing has recovered nicely. Would certainly not recommend Dyazide therapy given his complicated medical history. He feels his M ni re's is becoming more bothersome, particularly the balance portion. He is requesting an appointment with Dr. aWdsworth which will be arranged. All questions were answered. [email or web address] Not available 09/24/2024 12:03:43 03/04/2025 03/04/2025 Both ears appear stable on physical exam today. Audiometric testing shows slight worsening in the pure-tone thresholds in the left ear with moderately well-maintained speech discrimination. Today we discussed that his hearing change in the left ear may have been related to his underlying migraine/M ni re's phenomenon, but it appears to have stabilized. We discussed possible exacerbating factors for his symptoms, as we have discussed in the past. 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 He may follow-up with me as needed [email or web address] Not available 03/04/2025 11:20:32 08/31/2025 08/31/2025 74 year old male, with a history of Meniere's disease and chronic migraine headaches with accompanying vestibular migraine, presents for evaluation of the ears. Bilateral external auditory canals are free of obstruction and tympanic membranes appear stable. Cerumen debridement was deferred today. Patient will be scheduled for updated audiometric testing in the near future. We can provide him with a copy of that audiogram to bring back to [facility] and have his devices adjusted to his current level of hearing. Otherwise, follow up in 1 year for wax removal. All questions were answered. [email or web address] Not available 08/31/2025 12:37:36 Plan of Treatment Reminders Order Date Submit Date Provider Last Modified By Organization Details Last Modified Time Details Appointments Establish ed 15 2025 10:00A M CARI KENNEDY Not available Not available Not available Lab None recorded. Referral None recorded. Procedures None recorded. Surgeries None recorded. Imaging None recorded. Medication Orders None recorded. Patient TargetsNo targets recorded. Patient InstructionsNo instructions recorded. Reason for Referral None Reported. Results Created Date Observation Date Name Description Value Unit Range Abnormal Flag Note LastModifiedBy Organization Detail LastModifiedTime 09/24/20 24 audio gram No observ ation record ed. BARCODE Not Available 2023 14:07:13 03/04/20 25 audio gram No observ ation record ed. BARCODE Not Available 2024 13:43:08 Result Notes None recorded. Problems Name Problem SNOMED Code Status Onset Date Resolution Date Notes Provider Name and Address Organization Details Recorded Time [facility] 302568676 Active 2015 [employer] [employer] [facility]; Note: Date Diagnose d: 6 12:00 PM (R42) Not Available [facility] 4 02:37:17 Vertigo of central origin NOS Active 2015 Vertigo of central origin, unspecif ied ear; Note: Date Diagnose d: 6 12:13 PM (H81.49) Not Available [facility] 4 02:37:24 Nausea 051312751 Active 2015 Nausea; Note: Date Diagnose d: 6 12:00 PM (R11.0) Not Available [facility] 4 02:37:25 Refracto ry migraine 818396302 Active 2015 Other migraine , intracta ble, without status migraino christine; Note: Date Diagnose d: 6 12:13 PM (G43.819 ) CARI KENNEDY [address] [facility], [place],[address], [place], [address] , [facility] - [facility] 5 18:28:51 Sensorin eural hearing loss of bilatera l ears 831649741 Active 2017 Sensorin eural hearing loss, bilatera l; Note: Date Diagnose d: 10/16/20 18 1:54 PM (H90.3) CARI KENNEDY 100 [facility],[address], [place], [place], [address] , [facility] 5 18:28:51 Tinnitus of right ear 65705651137 08 Active 2017 Tinnitus , right ear; Note: Date Diagnose d: 10/16/20 18 1:54 PM (H93.11) Not Available [facility] 4 02:37:18 Foreign body in right ear [id number] 637517 Completed 201806/27/2024 Foreign body in right ear, initial encounte r; Note: Date Diagnose d: 9 12:51 PM (T16.1XX A) Not Available [facility] 4 02:37:22 M ni re's disease 97646326 Active 2019 Meniere' s disease, right ear; Note: Date Diagnose d: 01/29/2020 12:48 PM (H81.01) CARI KENNEDY [address] [facility], [address], [place], [address] , [facility] - [facility] 5 18:28:51 Obstruct carolann sleep apnea syndrome 06413395 Active 05/28/ 2021 Obstruct carolann sleep apnea (adult) (pediatr ic); Note: Date Diagnose d: 1 10:25 AM (G47.33) Not Available [facility] 4 02:37:19 Gastroes ophageal reflux disease without esophagi tis 764709208 Active 2020 Esophage al reflux NOS; Note: Date Diagnose d: 07/27/2021 10:35 AM (K21.9) Not Available [facility] 4 02:37:22 Anxiety disorder 658266939 Active 2021 Anxiety disorder , unspecif ied; Note: Date Diagnose d: 10/09/20 22 2:16 PM (F41.9) Not Available [facility] 4 02:37:18 Impacted cerumen in right ear 51259002293 60078 Active 2023 Impacted cerumen, right ear; Note: Date Diagnose d: 4 4:23 PM (H61.21) Not Available [facility] 4 02:37:27 Migraine with aura 0500061 Active 2024 ROSA ELENA WADSWORTH MD 100 [facility],[place] [address], [place], [address] , [facility] 5 19:46:59 Vertigo of central origin 61684475 Active 2024 CARI KENNEDY 100 [facility],[place] [address], [place], [address] , [facility] - [facility] 5 18:28:51 Migraine variants 733200541 Active 2024 ROSA ELENA WADSWORTH MD [address] [facility],[place] [address], [place], [address] , [facility] - [facility] 5 19:46:59 Problem Notes None recorded. Procedures Surgical History Date Name Laterality Status Provider Name and Address Organization Details Recorded Time 03/04/20 25 Comp Audio with Tymps - 18143 & 83337 completed PHYLLIS CADENA MA, CCC-A 100 [facility] [address], [place], [address] - [facility] 03/04/2025 10:33:53 09/24/20 24 Tympanometry - 14244 completed Mary Danny [facility] 09/24/2024 10:39:50 09/24/20 24 Air & Bone Audio - 13508 completed Mary Danny [facility] 09/24/2024 10:39:46 09/24/20 24 SRT & Speech Recognition - 48657 john Hernandez Danny [facility] 09/24/2024 10:39:54 Imaging Results None recorded. Procedure Notes None recorded. Medical Equipment None Reported. Allergies Allergen ID Allergen Name Allergen Category Reaction Reaction Severity Criticality Documentation Date Start Date Code Code System Note Provider Name and Address Organization Details Recorded Time 190523 celecoxib medicatio n Not available Not available Not available 03/04/2025 79276 7 RxNorm Lupe sullivan [facility] 5 11:09:42 824251 cephalexi n medicatio n Not available Not available Not available 03/04/2025 2231 RxNorm Lupe sullivan [facility] 5 11:09:50 773670 tetracycl ine medicatio n Not available Not available Not available 03/04/2025 29497 RxNorm Lupe sullivan [facility] 5 11:09:57 98402 Cymbalta medicatio n Not available Not available Not available 04/08/2024 54249 4 RxNorm React ion: Unkno wn, Seizu re; Not Available [facility] 4 01:02:12 Medications Name Sig Start Date Stop Date Status Note LastModified by Organization Details LastModified Time celecoxib 200 mg capsule 07/27 completed Medicati on ID: [id number] D uration Value: 90 Brand Name: celecoxi b Send Method: E-Prescr ibed Sub s Allowed: subs OK Medic ationGen ericName : celecoxi b Not Available Not Available Not Available latanopro st 0.005 % eye drops active Not Available Not Available Not Available methocarb manan 500 mg tablet 02/28 completed Not Available Not Available Not Available sucralfat e 1 gram tablet active Not Available Not Available Not Available clonazepa m 0.5 mg tablet active Not Available Not Available Not Available Neurontin 600 mg tablet 07/27 completed Medicati on ID: [id number] B rand Name: Neuronti n Send Method: E-Prescr ibed Sub s Allowed: subs OK Medic ationGen ericName : Neuronti n Not Available Not Available Not Available ciproflox acin 250 mg tablet 02/28 completed Not Available Not Available Not Available omeprazol e 40 mg capsule,d elayed release active Medicati on ID: [id number] B rand Name: omeprazo le Send Method: E-Prescr ibed Sub s Allowed: subs OK Medic ationGen ericName : omeprazo le Not Available Not Available Not Available temazepam 7.5 mg capsule TAKE 1 CAPSULE BY MOUTH EVERY DAY AT BEDTIME NEEDED FOR SLEEP. THIS REPLACES AMBIEN active Not Available Not Available No t Available tamsulosi n 0.4 mg capsule active Not Available Not Available Not Available prednison e 1 mg tablet active Not Available Not Available Not Available amlodipin e 10 mg tablet TAKE 1 TABLET BY MOUTH EVERY DAY 02/28 completed Not Available Not Available Not Available nortripty line 10 mg capsule Take 1 capsule by mouth at bedtime 02/28 completed Medicati on ID: [id number] B rand Name: nortript yline Se nd Method: E-Prescr ibed Sub s Allowed: subs OK Medic ationGen ericName : nortript yline Not Available Not Available Not Available esomepraz ole magnesium 40 mg capsule,d elayed release 02/06 completed Medicati on ID: [id number] D uration Value: 30 Brand Name: esomepra zole magnesiu m Send Method: E-Prescr ibed Sub s Allowed: subs OK Medic ationGen ericName : esomepra zole magnesiu m Not Available Not Available Not Available betametha sone dipropion ate 0.05 % topical cream active Not Available Not Available Not Available lorazepam 1 mg tablet active Not Available Not Available Not Available zolpidem 10 mg tablet active Not Available Not Available Not Available timolol maleate 0.5 % eye drops active Not Available Not Available Not Available ipratropi um bromide 42 mcg (0.06 %) nasal spray 02/06 completed Medicati on ID: [id number] B rand Name: ipratrop ium bromide Send Method: E-Prescr ibed Sub s Allowed: subs OK Medic ationGen ericName : ipratrop ium bromide Not Available Not Available Not Available ondansetr on 4 mg disintegr ating tablet 1 tablet by mouth active Not Available Not Available No t Available fluticaso ne propionat e 50 mcg/actua tion nasal spray,christine pension 07/27 completed Medicati on ID: [id number] D uration Value: 30 Brand Name: fluticas one propiona te Send Method: E-Prescr ibed Sub s Allowed: subs OK Medic ationGen ericName : fluticas one propiona te Not Available Not Available Not Available oxycodone 5 mg tablet active Not Available Not Available Not Available alfuzosin ER 10 mg tablet,ex tended release 24 hr 02/28 completed Not Available Not Available Not Available Botox 200 unit injection INJECT 200 UNITS INTRAMUS CULARLY INTO HEAD AND NECK AREAS EVERY 90 DAYS active Not Available Not Available No t Available buprenorp rozina 5 mcg/hour weekly transderm al patch 02/28 completed Medicati on ID: [id number] B rand Name: buprenor phine Se nd Method: E-Prescr ibed Sub s Allowed: subs OK Medic ationGen ericName : buprenor phine Not Available Not Available Not Available Vitals Date Recorded Body height Body mass index (BMI) Body weight Provider Name and Address Organization Details Last Updated DateTime 08/31/2025 180.34 cm 20.9 kg/m2 04444.86 g KAREN MCNAMARA [place] - [facility] 08/31/2025 09:49:50 Date Recorded Body height Body mass index (BMI) Body weight Provider Name and Address Organization Details Last Updated DateTime 09/24/2024 180.34 cm 19.5 kg/m2 66216.93 g Peg Grimes [place] - [facility] 09/24/2024 09:44:24 Social History None recorded. Functional Status None recorded. Mental Status None recorded. Family History Nothing Reported. Medical History Condition Response Allergies/Hayfever Y Heart Problems N Anxiety Y Tonsil Infections N Emphysema N Migraines Y Thyroid Problems N Glaucoma Y Depression Y COPD N Developmental Delay N Nasal or Sinus Problems N Anemia N Immune System Disorder N Anesthesia Complications N Heart Attack ([place]) N Other Skin Condition N Diabetes N Rhinitis N Bleeding Disorder N Food Allergy N Arthritis Y Hearing Loss Y Hyperlipidemia N Cancer N Stroke N Dementia N Nasal polyps N Asthma N High Cholesterol N Sleep Disorder Y GERD/Reflux Y Liver Disease N Headaches Y Fibromyalgia N Hypertension N Speech Delay N Kidney Disease N Past Encounters Encounter ID Performer Location Encounter Start Date Encounter Closed Date Diagnosis/Indication Diagnosis SNOMED-CT Code Diagnosis ICD10 Code Diagnosis IMO Codes Diagnosis Note [id number] REJI BARAJAS PA-C [facility] [address] [address] 09/24/2024 09:30:36 09/24/2024 11:56:17 Sensorineural hearing loss of bilateral ears 152854899 H90.3 Audiologic al evaluation results:Ri ght ear:Severe through 2kHz raisnig to Moderatly- Severe at 4kHz sloping to severe sensorineu ral hearing loss with no measurable word recognitio n.Left ear:Modera te sloping to moderately severe sensorineu ral hearing loss with poor word recognitio n. Tympanomet ry:Right Ear:Type ALeft Ear:Type B M ni re's disease 83685740 H81.01 [id number] ROSA ELENA WADSWORTH MD [facility] [address] [address] 03/04/2025 09:35:51 03/04/2025 11:22:04 Refractory migraine 500597853 G43.819 Sensorineu ral hearing loss of bilateral ears 252273524 H90.3 Audiologic al evaluation results: Right ear: Profound to moderately severe SNHL with no measurable word recognitio n. Left ear: Moderate-s evere SNHL with Fair word recognitio n. Tympanomet ry: Right Ear:Type Ad Left Ear:Type Ad M ni re's disease 29493835 H81.01 Vertigo of central origin 10720763 H81.4 [id number] CARI KENNEDY [facility] [address] [address] 08/31/2025 09:35:05 08/31/2025 10:07:08 Refractory migraine 095004577 G43.819 Sensorineu ral hearing loss of bilateral ears 179147417 H90.3 M ni re's disease 92638896 H81.01 Vertigo of central origin 04429580 H81.4 Health Concerns Section Related Observation LastModified by Organization Detai ls LastModified Time None Recorded Concern Status LastModified by Organization Details LastModified Time None Recorded Advance Directives Directive None Recorded Payers Insurance Date Sequence Insurance Name Policy Number Policy Patterson Covered Member ID Patterson Member ID Guarantor Name 08/31/2025 1 [employer] [id number] 1 Joby Owens [id number] Joby Owens Notes Date Note Type Note Provider Name and Address Organization Details Recorded Time 09/24/2024 text/html ROS as noted in the HPI 73-year-old male presents for evaluation of vertigo. He has a history of M ni re's disease and states he had a M ni re's flareup last week. He reports vertigo with decreased hearing in the left ear. It feels as though the hearing has returned and he has had no further vertigo. His M ni re's is complicated by a history of low sodium. He is currently on fluid restriction. He unfortunately had a seizure in July related to low sodium. For this reason he has not on Dyazide therapy. MAGDA SERRATO MD [address] [place] [address], [place], [address], [facility] - [facility] 09/26/2024 19:49:09 03/04/2025 text/html 74-year-old male who I have seen many many times over the years for a number of different issues including chronic migraine headaches accompanied by vestibular migraine, as well as M ni re's disease and progressive sensorineural hearing loss. Patient has undergone cochlear implant evaluation and has been found to meet the audiologic candidacy criteria for cochlear implantation in either ear. He has been offered this remedy but has been nervous about proceeding. Currently using BiCROS amplification gets managed through [facility].Patient has been working with [facility] neurology in the past for chronic migraine and has received 31-point Botox injections.Patient has history of obstructive sleep apnea for which she is using an oral appliance. Last sleep study with oral appliance in place showed AHI of 8.Last seen by Reji Barajas PA-C back in August 2024 at which point he reported M ni re's flareup the previous week accompanied by increased left tinnitus and decreased hearing in the left ear, which recovered to baseline level prior to the visit. Patient is off Dyazide due to problems with hyponatremia. In the past we have discussed trial of nortriptyline to help with his headaches and vertigo but he was concerned about side effects. We have discussed his chronic anxiety as a triggering factor for the symptoms.Patient recently having some problems with dysphagia. ROSA ELENA WADSWORTH MD 100 [facility],[address], [address], [facility] 03/04/2025 11:20:50 08/31/2025 text/html ROS as noted in the HPI 74 year old male, with a history of Meniere's disease and chronic migraine headaches with accompanying vestibular migraine, presents with his for evaluation of the ears. Patient reports his hearing has slightly declined in the left ear since the last visit. He is unsure if this is related to wax buildup. Patient wears BiCROS amplification dispensed by [facility] with somewhat good effect. He currently has them on the lowest setting, however he notes increased feedback and worsened tinnitus if they are adjusted to a higher setting. Don Gtz, 100 [facility],[address], [address], [facility] 08/31/2025 13:08:58
--- OUTSIDE RECORDS SUMMARY | 2025-09-23 17:55 | XMS_ITS | Encounter Summary ---
Author Organization [facility] Address [address] [place] [address] Care Team Providers Care Lock Assembler Name Role Phone Michoacano Senior MD Primary Care Provider [phone] Rashel Cisneros Unavailable [phone] Reason for Referral * Diagnostic Imaging (Routine) - Closed Specialty Diagnoses / Procedures Referred By Hosea winters Referred To Contact Radiology Diagnoses Peroneal tendinitis of right lower extremity Procedures US guided needle placement Merlyn Mcneil MD [address] [place] [phone] Phone: tel: fax: Referral ID Status Reason Start Date Expiration Date Visits Re quested Visits Authorized [id number] Closed 09/21/2020 10/26/2021 1 1 * (Routine) - Closed Specialty Diagnoses / Procedures Referred By Hosea winters Referred To Contact Orthopedic Surgery Diagnoses Peroneal tendinitis of right lower extremity Merlyn Mcneil MD [address] [place] [phone] Phone: tel: fax: Supriya Lorenzana DO [address] [place] [address] Phone: tel: fax: Referral ID Status Reason Start Date Expiration Date Visits Re quested Visits Authorized [id number] Closed 09/20/2020 10/25/2021 1 1 Encounter Details Date Type Department Care Team (Late st Contact Info) Description 09/20/2020 Orders Only [facility] Department of Orthopedic Surgery [address] [place] [address] Merlyn Mcneil MD [address] [facility] [address] Peroneal tendinitis of right lower extremity (Primary Dx) Social History Tobacco Use Types Packs/Day Years [...] file Not on file Not on file documented as of this encounter Plan of Treatment Scheduled Referrals Name Type Priority Associated Diagnoses Order Schedule Orthopedics Referral Outpatient Referral Routine Peroneal tendinitis of right lower extremity Ordered: 09/20/2020 documented as of this encounter Results * US guided needle placement (09/30/2020 1:19 PM EST) Anatomical Region Laterality Modality Ultrasound 09/30/2020 1:56 PM EST Impressions 09/30/2020 2:00 PM EST Successful ultrasound-guided injection of the right peroneal tendon sheath. Patient reported reduction of symptoms after the injection. Narrative 09/30/2020 2:00 PM EST EXAMINATIONS: ULTRASOUND-GUIDED INJECTION OF THE RIGHT PERONEAL TENDON SHEATH HISTORY: Postoperative changes of the right peroneal tendons with recurrent right peroneal/lateral ankle pain. ATTENDING PRESENCE: Dr. Sunshine, the attending radiologist, performed the procedure. COMPARISON: Prior ultrasound 04/26/2020. SEDATION: The patient did not require conscious sedation for the procedure. TECHNIQUE: The risks, benefits and alternatives were discussed and informed consent was obtained. Prior to beginning the procedure, [place] Protocol was performed to confirm the patient's identity and the planned procedure. Sterile barriers used during the procedure. Chloraprep was used for cutaneous antisepsis. The patient was placed supine on the ultrasound table. 3 mL of 1% Lidocaine was used for local anesthesia. A 25-gauge needle was advanced into the peroneal tendon sheath joint under ultrasound guidance. Next, a 3 mL injectate consisting of 2 mL Kenalog 40 mg per mL and 1 mL 0.25% bupivacaine was injected. The patient tolerated the procedure well. There were no complications. The needle was removed and a Band- Aid was applied. ESTIMATED BLOOD LOSS: Minimal CONDITION: Stable condition DISCHARGED TO: Home FINDINGS: Ultrasound images confirm correct position of the needle. Patient reported immediate post procedure pain relief. Procedure Note Don Sunshine MD - 09/30/2020 EXAMINATIONS: ULTRASOUND-GUIDED INJECTION OF THE RIGHT PERONEAL TENDONSHEATH HISTORY: Postoperative changes of the right peroneal tendons withrecurrent right peroneal/lateral ankle pain. ATTENDING PRESENCE: Dr. Sunshine, the attending radiologist, performed theprocedure. COMPARISON: Prior ultrasound 04/26/2020. SEDATION: The patient did not require conscious sedation for theprocedure. TECHNIQUE: The risks, benefits and alternatives were discussed andinformed consent was obtained. Prior to beginning the procedure, UniversalProtocol was performed to confirm the patient's identity and the plannedprocedure. Sterile barriers used during the procedure. Chloraprep was used forcutaneous antisepsis. The patient was placed supine on the ultrasound table. 3 mL of 1%Lidocaine was used for local anesthesia. A 25-gauge needle was advancedinto the peroneal tendon sheath joint under ultrasound guidance. Next, a 3mL injectate consisting of 2 mL Kenalog 40 mg per mL and 1 mL 0.25%bupivacaine was injected. The patient tolerated the procedure well. Therewere no complications. The needle was removed and a Band-Aid was applied. ESTIMATED BLOOD LOSS: Minimal CONDITION: Stable condition DISCHARGED TO: Home FINDINGS: Ultrasound images confirm correct position of the needle.Patient reported immediate post procedure pain relief. IMPRESSION: Successful ultrasound-guided injection of the right peroneal tendonsheath. Patient reported reduction of symptoms after the injection. us Merlyn Mcneil MD IMG US PROCEDURES Final Resul t documented in this encounter Visit Diagnoses Diagnosis Peroneal tendinitis of right lower extremity- Primary Peroneal tendinitis of right lower extremity documented in this encounter Care Teams Lock Assembler Relationship Specialty Start Date End Date Michoacano Senior MD [address] [phone] PCP - General Internal Medicine 06/19/19 Rashel Cisneros [address] [facility] [address] [place] [address] 10/09/19 documented as of this encounter
--- OUTSIDE RECORDS SUMMARY | 2025-09-23 17:55 | XMS_ITS | Clinical Summary ---
Author Organization [facility] Address [address] [place] [address] Care Team Providers Care Clinical Laboratory Technologist Name Role Phone Michoacano Lee MD Primary Care Provider [phone] Social History Tobacco Use Types Packs/Day Years Used Date Smoking Tobacco: Never Assessed Sex and Gender Information Value Date Recorded Sex Assigned at Not on file Legal Sex Male 12:47 AM EDT Gender Identity Not on file Sexual Orientation Not on file Plan of Treatment Health Maintenance Due Date Last Done Comments Advance Care Planning 1950 Hepatitis C Virus Screening 1950 DTaP/Tdap/Td Vaccines (1 - Tdap) 1968 Pneumococcal Vaccines 50+ (1 of 1 - PCV) 1999 Zoster (Shingles) Vaccine (1 of 2) 1999 RSV Vaccine 50 years and old er and Patients (1 - 1-dose 75+ series) 2024 COVID-19 Vaccine (2023-2 5 season) 2025 Hepatitis B Vaccines Aged Out No long er eligible based on patient's age to complete this topic Care Teams Clinical Laboratory Technologist Relationship Specialty Start Date End Date Michoacano Lee MD [address] [place] [address] PCP - General Internal Medicine 03/01/23
--- OUTSIDE RECORDS SUMMARY | 2025-09-23 17:56 | XMS_ITS | Patient Health Record ---
Author Organization [facility] Address [address] [facility] [address] [place] [address] Care Team Providers Care Medical Historian Name Role Phone Michoacano Senior Primary Care Provider UnavailFRANCY Hoyt Unavailable [phone] Allergies Allergen (clinical drug ingredient) Drug/Non Drug Allergy documented on EMR Reaction Allergy Type Onset Date Status duloxetine Cymbalta Unknown Drug Allergy Active levetiracetam Keppra Unknown Drug Allergy Act carolann meclizine Meclizine HCl Unknown Drug Allergy Act carolann Reason For Referral No Information Medications Medication SIG (Take, Route, Frequency, Duration) Notes Start Date End Date Status predniSONE 1 MG 1 tablet Orally Once a day; Duration: 90 days 04/13/2023 Active oxyCODONE-Acetaminophen 5-325 MG 1 tablet as needed Orally every 6 hrs Active Tamsulosin HCl 0.4 MG 1 capsule Orally O nce a day Not-Taking KlonoPIN Not-Taking Lidocaine 5 % APPLY 1 PATCH ONCE A DAY EXTERNALLY TO BOTH FEET AND REMOVE AFTER 12 HOURS; Duration: 30 Not-Taking Ambien 10 MG 1 tablet at bedtime as needed Orally Once a day Active Aspirin Adult Low Dose 81 MG 1 tablet Orally Once a day Active Latanoprost-Timolol Maleate 0.005-0.5 % 1 drop into affected eye Ophthalmic Once a day Active clonazePAM 0.5 MG 1 tablet at bedtime Orally Once a day Active Timolol Maleate 0.5 % 1 drop into affect ed eye Ophthalmic Once a day Active Omeprazole 40 MG 1 capsule 30 minutes before morning meal Orally Once a day Active Problems Problem Type SNOMED Code ICD Code Onset Dates Problem Status W/U Status Risk Notes Problem Chronic pain (36976883) Other chronic pain (G89.29) Active confirmed Problem Localized, secondary osteoarthritis of the ankle and/or foot (660110805) Secondary osteoarthritis, 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) Active confirmed Problem Localized, secondary osteoarthritis of the ankle and/or foot (525109352) Secondary osteoarthritis, left ankle and foot (M19.272) Active confirmed Problem Idiopathic peripheral neuropathy (41189932) Idiopathic peripheral neuropathy (G60.9) Active confirmed Problem 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) Peripheral polyneuropathy (G62.9) Active confirmed Problem Localized, primary osteoarthritis of the ankle and/or foot (810449348) Arthritis of ankle, left (M19.072) Active confirmed Problem Localized, primary osteoarthritis of the ankle and/or foot (897790783) Inflammation of right ankle joint (M19.071) Active confirmed Vital Signs Height 71 in in 10/22/2024 Weight 152.6 lbs 10/22/2024 BMI 21.28 kg/m2 10/22/2024 Encounters Encounter Location Date Provider Diagnosis [facility] [address] [phone] 10/22/2024 FRANCY ALVES Toe pain, right M79.674 and Toe pain, left M79.675 [facility] [address] [phone] 10/14/2024 FRANCY ALVES [facility] [address] [phone] 03/20/2025 FRANCY ALVES Assessments Encounter Date Diagnosis (ICD Code) Assessment Notes Treatment Notes Treatment Clinical Notes Section Notes 10/22/2024 Toe pain, right (ICD-10 - M79.674) Patient examined and evaluated. I reviewed his medical history. He has been fairly sedentary since his hospitalization in July. He most recently started his walks again and has noticed some pain around the medial borders of the great toenails.He has some extensus of the toes likely from residual neuromuscular deficits. This is causing increased pressure around the great toes in shoe gear. No real evidence of significant nail deformity of infection. I did trim the corner of the right great toenail a little. I assured him of the findings and advised he continue to monitor. He can follow back with me as needed. 10/22/2024 Toe pain, left (ICD-10 - M79.675) Plan Of Treatment Pending Test Test Name Order Date X ray : Ankle, right, 3 views 12/14/2020 X ray : Foot, right, 2 views 12/14/2020 X ray : Foot, left 3v 12/06/2020 X ray : Foot, right 3v 12/06/2020 DRAIN/INJECT, INTERMEDIATE JOINT/BURSA 0 05/21/2023 DRAIN/INJECT, INTERMEDIATE JOINT/BURSA 0 05/28/2023 DRAIN/INJECT, INTERMEDIATE JOINT/BURSA 1 Insurance Providers Payer Name Payer Address Payer Phone Subscriber Number Group Number Insured Name Patient Relationship to Insured Coverage Start Date Coverage End Date [employer] Medicare [address] [place] [phone] [id number] Joby Abdalla Self - patient is the insured Medications Administered Medication Instructions Date of Administration Dosage Notes Dexamethasone 05/21/2023 2 mg Dexamethasone 05/28/2023 2 mg dexAMETHasone Sod Phosphate PF 11/23/2023 4 mg Kenalog 05/21/2023 5 mg Kenalog 05/28/2023 5 mg Kenalog 11/23/2023 10 mg Medical (General) History Medical History History ICD Code 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 SSNI stopped. ? chronic underlying hyponatremia 2021 Pulmonary Embolism and Deep Vein thrombosis ? provoked from shoulder surgery. 2021 COVID vaccinated X 5 (DoubleVerify) Peripheral neuropathy-unknown origin of extremities vestibular migraines Vertigo hx of detached retina and vi gi changes. Ptosis of right eye. Light sensitivity facial nerve pain Fatigue Recent CTA showing vertebral artery beading and ectasia. ? 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
--- OUTSIDE RECORDS SUMMARY | 2025-09-23 17:56 | XMS_ITS | Clinical Summary ---
Author Organization [facility] Address [address] [place] [address] Care Team Providers Care Steam Clean Machine Operator Name Role Phone Michoacano Lee MD Primary Care Provider Allergies Active Allergy Reactions Criticality Noted Date [...] Vaccine (1 of 1 - PCV) 2014 RSV Adult > 60+ Yrs or (1 - 1-dose 75+ series) 2024 COVID-19 Vaccine (4 - 2024-2 6 season) 2025 09/12/2021, 02/13/2021, 01/23/2021 Influenza Vaccine (#1) 2025 08/27/2021 Shingrix-Zoster Vaccine Completed 10/18/20 18, 07/19/2018 Hepatitis B Vaccines Aged Out No long er eligible based on patient's age to complete this topic RSV Ped < 20 months Aged Out No longe r eligible based on patient's age to complete this topic Care Teams Steam Clean Machine Operator Relationship Specialty Start Date End Date Michoacano Lee MD [address] [place] [id number] PCP - General Web Developer Programmer 06/01/23
--- OUTSIDE RECORDS SUMMARY | 2025-09-23 17:56 | XMS_ITS | Clinical Summary ---
Author Organization [facility], Address [address] [place] [address] Phone Care Team Providers Care Vending Machine Attendant Name Role Phone Michoacano Lee MD Primary Care Provider [phone] Allergies No known active allergies Medications zolpidem (AMBIEN) 10 MG tablet 01/16/2022 Active timolol (TIMOPTIC) 0.5 % ophthalmic solution 11/28/2021 Active tamsulosin (FLOMAX) 0.4 MG 24 hr capsule 12/04/2021 Activ e oxyCODONE (ROXICODONE) 5 MG immediate release tablet 01/19/2022 Acti ve azelastine (ASTELIN) 0.1 % nasal spray 01/17/2022 Active amoxicillin-cla vulanate (AUGMENTIN) 875-125 MG per tablet 01/20/2022 Active sucralfate (CARAFATE) 1 g tablet Take 1 g by mouth in the morning and 1 g at noon and 1 g in the evening and 1 g before bedtime. Active clonazePAM (KlonoPIN) 0.5 MG tablet Take 0.5 mg by mouth in the morning and 0.5 mg in the evening. Active famotidine (PEPCID) 20 MG tablet Take 20 mg by mouth in the morning and 20 mg in the evening. Active Active Problems Problem Noted Date Diagnosed Date Hypo-osmolality and hyponatremia 01/25/2022 Neuropathy 10/24/2019 Pain in finger 01/27/2013 Overview (01/25/2022): Pain in finger - right thumb Family History Medical History Relation Comments Heart disease Father Diabetes Maternal Grandfather Cancer Mother Relation Status Comments Father Maternal Grandfather Mother Social History Tobacco Use Types Packs/Day Years Used Date Smoking Tobacco: Never Assessed Sex and Gender Information Value Date Recorded Sex Assigned at Not on file Legal Sex Male 2:03 PM EST Gender Identity Not on file Sexual Orientation Not on file Last Filed Vital Signs Vital Sign Reading Time Taken Comments Blood Pressure 135/76 10/09/2023 1:46 PM EST Pulse 64 10/09/2023 1:46 PM EST Temperature - - Respiratory Rate - - Oxygen Saturation 97% 01/25/2022 9:26 AM EST Inhaled Oxygen Concentration - - Weight 69.4 kg (153 lb) 01/25/2022 9:26 AM EST Height - - Body Mass Index - - Plan of Treatment Health Maintenance Due Date Last Done Comments Pneumococcal Vaccine: 50+ Ye ars (1 of 2 - PCV) 1968 Colorectal Cancer Screening: Annual FOBT 1998 Colorectal Cancer Screening: Colonoscopy 1998 Colorectal Cancer Screening: Sigmoidoscopy 1998 Influenza Vaccine (#1) 2025 Hepatitis B Vaccine Aged Out No longe r eligible based on patient's age to complete this topic Insurance Aetna Medicare Aetna MCR Adv PPO ([id number]) Care Teams Vending Machine Attendant Relationship Specialty Start Date End Date Michoacano Lee MD [address] PCP - General Internal Medicine 01/25/22
--- OUTSIDE RECORDS SUMMARY | 2025-09-23 17:56 | XMS_ITS | Data Portability ---
Author Organization [facility] Anil Shah [facility], [facility] Address [address] [place] [address] Assessment No assessment recorded. Plan of Treatment Reminders Order Date Submit Date Provider Last Modified By Organization Details Last Modified Time Details Appointments DME 2024 10:00A M MARY Menjivar Not available Not available Not available SURGERY @ [place] 2024 11:00A M Channing Khan MD Not available Not available Not available POST OP 10 2024 09:40A Joseph Khan MD Not available Not available Not available Lab None recorded. Referral None recorded. Procedures None recorded. Surgeries None recorded. 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 Patient TargetsNo targets recorded. Patient InstructionsNo instructions recorded. Reason for Referral None Reported. Results Created Date Observation Date Name Description Value Unit Range Abnormal Flag Note LastModifiedBy Organization Detail LastModifiedTime 03/23/20 25 03/23/2025 XR, hand, 3 or more view http:/ [email or web address] ?Encry pted=s hAaTro YD8dLq bEUv6g %2BXZw aYqtaq 0bqfl% 2Fg9IQ a4ajBk vP9nXo QUaueC m3YtLR FvZlgJ JJ8mAn HZtai3 7p5885 AC0Kla n%2BBU qeiKiQ trMwF INTERFACE [facility] [address] [facility] [address], [place], [address], 03/23/2025 10:32:27 03/23/20 25 03/23/2025 XR, hand, 3 or more view http:/ [email or web address] ?Encry pted=s hAaTro YD8dLq bEUv6g %2BXZw aYqtaq 0bqfl% 2Fg9IQ a4ajBk vP9nXo QUaueC m3YtLR FvZlgJ JJ8mAn HZtai3 1g6144 AC0Kla n%2BBU qeiKiQ trMwF INTERFACE [facility] [address] [facility] [address], [place], [address], 03/23/2025 10:32:28 Result Notes Documentation Provider Name and Address Organization Details Recorded Time Xr, Hand, 3 Or More View : [email or web address] Encrypted=iuOfBqwXG5eCkgG Uv6g%2JPSluFzljl6dvum%2Fg 9EHu8uxPfkM2xWvGPnhzNa0Tr JEKqOgyPXK3sWhMJovr70x927 8AZ0Pwsg%2BBUqeiKiQtrMwF Not Available [facility] 03/23/2025 10:3 2:27 Xr, Hand, 3 Or More View : [email or web address] Encrypted=wqPyAxlFI4tDtiS Uv6g%6AQVwlQpwba7tbwe%2Fg 2MMi1yyJzcJ7aNaSLcqwWv8Ih EHHxYqgVRS1sPqBFfey20z905 8XS8Vtff%2BBUqeiKiQtrMwF Not Available [facility] 03/23/2025 10:3 2:29 Problems Name Problem SNOMED Code Status Onset Date Resolution Date Notes Provider Name and Address Organization Details Recorded Time Osteoporoti c fracture of vertebra 4543512447789 9109 Active 2023 Froilan Houser MD [address], [place], [address], [facility] 4 12:47:26 Lumbar spondylosis 659321478 Active 2023 Froilan Houser MD [address], [place], [address], [facility] 4 12:47:27 Arthritis of joint of right shoulder region Active 2023 Channing Khan MD [address], [place], [address], [facility] 4 09:54:31 Rupture of rotator cuff of right shoulder 8726759521682 9103 Active 2024 DIEGO VELA [facility] 5 15:18:35 Osteoarthri tis of joint of right shoulder region 9535783624842 00 Active 2024 DIEGO sullivan [facility] 5 15:18:35 Problem Notes None recorded. Procedures Surgical History Date Name Laterality Status Provider Name and Address Organization Details Recorded Time 07/29/20 25 PM Shoulder Kenalog 2cc Injection Unilateral completed Channing Khan MD [address] [facility], [place], [address], [facility] 07/27/2025 13:07:01 04/22/20 25 PM Shoulder Kenalog 2cc Injection Unilateral completed Channing Khan MD [address] [facility], [place], [address], [facility] 04/19/2025 15:49:45 01/21/20 25 PM Shoulder Kenalog 2cc Injection Unilateral completed Channing Khan MD [address], [place], [address], [facility] 01/19/2025 12:37:05 10/22/20 24 PM Shoulder Kenalog 2cc Injection Unilateral completed Channing Khan MD [address], [place], [address], [facility] 10/21/2024 08:09:52 07/23/20 24 PM Shoulder Kenalog 2cc Injection Unilateral completed Channing Khan MD [address], [place], [address], [facility] 07/22/2024 10:02:08 04/23/20 24 Sports Shoulder 4&1 completed Channing Khan MD [address], [place], [address], [facility] 04/23/2024 09:54:06 03/18/20 12482 Therapeutic Exercise (1:1) completed Malathi Wilson DPT [address], [place], [address], [facility] 03/18/2024 14:37:50 03/18/20 42318: Ultrasound completed Malathi Wilson DPT [address], [place], [address], [facility] 03/18/2024 13:21:50 03/18/20 80915: Manual therapy completed Malathi Wilson DPT [address], [place], [address], [facility] 03/18/2024 14:35:37 03/11/20 23532 Therapeutic Exercise (1:1) completed Malathi Wilson DPT [address], [place], [address], [facility] 03/11/2024 14:53:39 03/11/20 67363: Ultrasound completed Malathi Wilson DPT [address], [place], [address], [facility] 03/11/2024 13:22:40 03/11/20 08397: Manual therapy completed JULIANE KayT [address], [place], [address], [facility] 03/11/2024 14:53:46 03/06/20 86944: Ultrasound completed Gopal Crook PTA [address], [place], [address], [facility] 03/06/2024 10:34:40 03/06/20 24 59623: Manual therapy completed Gopal Crook PTA [address], [place], [address], [facility] 03/06/2024 11:20:37 02/25/20 24 50015: Ultrasound completed Malathi Wilson DPT [address], [place], [address], [facility] 02/26/2024 09:57:10 02/25/20 02634: Manual therapy completed Gopal Crook PTA [address], [place], [address], [facility] 02/25/2024 12:07:03 02/21/20 52227 Therapeutic Exercise (1:1) completed Malathi Wilson DPT [address], [place], [address], [facility] 02/21/2024 12:14:00 02/21/20 42326: Moderate complexity PT eval completed Malathi Wilson DPT [address], [place], [address], [facility] 02/21/2024 12:14:10 Shoulder Surgery completed EDGAR RINALDI [facility] 03/23/2025 10:25:55 Ankle/Foot Surgery completed EDGAR RINALDI [facility] 03/23/2025 10:25:55 procedure on shoulder completed ANA DRAPER [facility] 03/27/2024 11:43:14 Imaging Results None recorded. Procedure Notes None recorded. Medical Equipment None Reported. Allergies Allergen ID Allergen Name Allergen Category Reaction Reaction Severity Criticality Documentation Date Start Date Code Code System Note Provider Name and Address Organization Details Recorded Time 26895 duloxetin e hydrochlo ride medicatio n Not available Not available Not available 01/28/20242021 42463 0 RxNorm Not Available [facility] 14:03:25 Medications Name Sig Start Date Stop Date Status Note LastModified by Organization Details LastModified Time latanoprost 0.005 % eye drops active Not Available Not Available Not Available methocarbam ol 500 mg tablet 03/20 completed Not Available Not Available Not Available azithromyci n 250 mg tablet 03/20 completed Not Available Not Available Not Available sucralfate 1 gram tablet active Not Available Not Available Not Available clonazepam 0.5 mg tablet active Not Available Not Available Not Available ciprofloxac in 250 mg tablet 03/20 completed Not Available Not Available Not Available omeprazole 40 mg capsule,del ayed release active Not Available Not Available Not Available temazepam 7.5 mg capsule TAKE 1 CAPSULE BY MOUTH EVERY DAY AT BEDTIME NEEDED FOR SLEEP. THIS REPLACES AMBIEN active Not Available Not Available No t Available tamsulosin 0.4 mg capsule active Not Available Not Available Not Available prednisone 1 mg tablet active Not Available Not Available Not Available amoxicillin 250 mg/5 mL oral suspension 03/20 completed Not Available Not Available Not Available amlodipine 10 mg tablet TAKE 1 TABLET BY MOUTH EVERY DAY 03/20 completed Not Available Not Available Not Available pseudoephed rine-guaife nesin ER 80-700 mg tablet,exte nded release 1-2 q 4-6 prn pain script must last for [address] while on this medicatio n 03/20 completed Statu s: 'Curr ent'; Not Available Not Available Not Available betamethaso ne dipropionat e 0.05 % topical cream active Not Available Not Available Not Available amoxicillin 250 mg capsule 03/20 completed Not Available Not Available Not Available lorazepam 1 mg tablet 03/20 completed Not Available Not Available Not Available zolpidem 10 mg tablet active Not Available Not Available No t Available timolol maleate 0.5 % eye drops active Not Available Not Available Not Available ondansetron 4 mg disintegrat ing tablet active Not Available Not Available N ot Available oxycodone 5 mg tablet active Not Available Not Available No t Available alfuzosin ER 10 mg tablet,exte nded release 24 hr active Not Available Not Available Not Available oxycodone HCl-oxycodo ne-ASA oxyCODONE HCl 5MG Tablet 2023 active Statu s: 'Curr ent'; Not Available Not Available Not Available GaviLyte-G 236 gram-22.74 gram-6.74 gram-5.86 gram oral solution 03/20 completed Not Available Not Available Not Available Botox 200 unit injection INJECT 200 UNITS INTRAMUSC ULARLY EVERY 12 WEEKS active Not Available Not Available No t Available buprenorphi ne 5 mcg/hour weekly transdermal patch 03/20 completed Not Available Not Available Not Available Vitals Date Recorded Body height Body mass index (BMI) Body weight Provider Name and Address Organization Details Last Updated DateTime 01/21/2025 180.34 cm 20.2 kg/m2 13958.89 g JULIO C MOORE [facility] 01/21/2025 13:46:08 Date Recorded Body height Body mass index (BMI) Body weight Provider Name and Address Organization Details Last Updated DateTime 03/23/2025 180.34 cm 20.2 kg/m2 62125.89 g EDGAR RINALDI [facility] 03/23/2025 10:26:18 Date Recorded Body height Body mass index (BMI) Body weight Provider Name and Address Organization Details Last Updated DateTime 04/22/2025 180.34 cm 20.2 kg/m2 80561.89 g [facility] 04/22/2025 09:28:24 Date Recorded Body height Body mass index (BMI) Body weight Provider Name and Address Organization Details Last Updated DateTime 07/29/2025 180.34 cm 20.2 kg/m2 93531.89 g DIEGO [facility] 07/29/2025 12:58:20 Date Recorded Body height Body mass index (BMI) Body weight Provider Name and Address Organization Details Last Updated DateTime 10/22/2024 180.34 cm 20.2 kg/m2 24622.89 g DIEGO [facility] 10/22/2024 12:57:08 Social History None recorded. Functional Status Question Answer Note LastModified by Organization D etails LastModified Time What is your level of alcohol consumption? None [email or web address] Information not available 04/17/2025 Mental Status None recorded. Family History Nothing Reported. Medical History Condition Response Coronary Artery Disease N Anxiety/Depression Y Emphysema N COPD N Pacemaker N Vascular Disease N Heart Trouble N Gastrointestinal Disease N Autoimmune disease N Orthotics N Arthritis Y Blood Clot N Acid Reflux (GERD) Y Cancer N Stroke N Rheumatoid Arthritis N Arrhythmia N Headaches N Fibromyalgia N Allergies/Hayfever N Breathing or lung disorders N Nerve Disorders N Thyroid Problems N Kidney/Bladder Problems N Anemia N Heart Attack (MO) N Cholesterol N Diabetes N Bleeding Disorder N Seizures/Epilepsy Y AIDS/HIV N Congestive Heart Failure (CHF) N Asthma N Peripheral Vascular Disease N Sleep Apnea Y Hepatitis N Heart Disease N Pulmonary Embolism N Hypertension N Osteoporosis N Past Encounters Encounter ID Performer Location Encounter Start Date Encounter Closed Date Diagnosis/Indication Diagnosis SNOMED-CT Code Diagnosis ICD10 Code Diagnosis IMO Codes Diagnosis Note [id number] JAY Kay PT [address] [place] [address] 02/21/2024 11:07:11 02/21/2024 12:23:09 Osteoarthritis of joint of right shoulder region 3314371756 41064 M19.011 History of total arthroplasty of left shoulder 7428922565 9182915 Z96.088 [id number] CELESTE Guerrero PT [address] [place] [address] 02/25/2024 11:22:26 02/25/2024 13:44:02 Osteoarthritis of joint of right shoulder region 2771982675 M19.011 History of total arthroplasty of left shoulder 3250083121 6269178 Z96.919 [id number] CELESTE Guerrero PT [address] [place] [address] 03/06/2024 10:21:43 03/06/2024 11:34:17 Osteoarthritis of joint of right shoulder region 9642973741 M19.011 History of total arthroplasty of left shoulder 3170622822 3829796 Z96.258 [id number] JAY Kay PT [address] [place] [address] 03/11/2024 13:24:18 03/11/2024 16:05:01 Osteoarthritis of joint of right shoulder region 0313156434 M19.011 History of total arthroplasty of left shoulder 1688931199 7165230 Z96.332 [id number] JAY Kay PT [address] [place] [address] 03/18/2024 13:53:02 03/18/2024 14:53:39 Osteoarthritis of joint of right shoulder region 8526249041 01865 M19.011 History of total arthroplasty of left shoulder 8102075206 8098845 Z96.912 [id number] Froilan Houser MD [place] [address] [place] [address] 03/27/2024 10:09:23 04/16/2024 15:50:34 Neck pain 38218765 M54.2 Low back pain 425605340 M54.50 Osteoporot ic fracture of vertebra 5962000840 7255045 M80.08XD Lumbar spondylosis 11750 0009 M47.896 73-year-ol d male with complicate d medical history includes osteoporos is with vertebral compressio n fractures and cervical thoracic and lumbar spondylosi s. I recommend he be treated for his osteoporos is as he has a history of insufficie ncy fractures. Additional ly for his neck and back pain I recommend he continue targeted injections . Follow-up as needed. Cervical spondylosis 387 063861 M47.685 [id number] MD [facility] [address] [place] [address] 04/23/2024 09:44:13 05/20/2024 12:06:39 Arthritis of joint of right shoulder region 2673969168 47401 M13.399 [id number] MD [facility] [address] [place] [address] 07/23/2024 14:53:32 08/14/2024 17:56:38 Arthritis of joint of right shoulder region 4408434560 90899 M13.661 [id number] MD [facility] [address] [place] [address] 10/22/2024 12:51:03 11/25/2024 10:39:03 Arthritis of joint of right shoulder region 7803183714 82293 M13.226 [id number] Channing Khan MD [facility] [address] [place] [address] 01/21/2025 13:41:19 02/05/2025 10:10:00 Arthritis of joint of right shoulder region 2032513757 48714 M13.930 [id number] MD [facility] [address] [place] [address] 03/23/2025 10:18:45 04/02/2025 11:30:13 Pain of bilateral hands 4060099454 5089664 M79.641 M79.642 [id number] Arthritis of joint of hand 4860176323 M19.049 8989215486 [id number] MD [facility] [address] [place] [address] 04/22/2025 09:19:43 04/29/2025 09:36:20 Lumbar spondylosis 749908382 M47.050 [id number] MD [facility] [address] [place] [address] 07/29/2025 12:50:50 08/04/2025 09:34:40 Arthritis of joint of right shoulder region 7004876570 86359 M13.811 Health Concerns Section Related Observation LastModified by Organization Detai ls LastModified Time None Recorded Concern Status LastModified by Organization Details LastModified Time None Recorded Advance Directives Directive None Recorded Payers Insurance Date Sequence Insurance Name Policy Number Policy Patterson Covered Member ID Patterson Member ID Guarantor Name 08/04/2025 1 [employer] (MEDICARE REPLACEMENT/ ADVANTAGE - PPO) [id number] Joby Owens [id number] Joby Owens Notes Date Note Type Note Provider Name and Address Organization Details Recorded Time 10/22/2024 text/html REASON FOR VISITPatient comes to the office with known glenohumeral joint arthritis of the Right shoulder. The patient has done well with conservative management for their shoulder pain. Recently reports increasing discomfort over the past several weeks without injury. Pain is generalized about the shoulder and discomfort is noted at night. PAST MEDICAL/SURGICAL HISTORYCurrent medications per intake sheet. PHYSICAL FINDINGSThe patient is well appearing, in no apparent distress, alert and oriented to person, place and time. Gait is symmetric. No significant swelling, warmth or erythema about either shoulder.There is mild tenderness to palpation about the shoulder. Active range of motion of the shoulder is full with moderate pain through mid range manipulations. 4/5 strength of the shoulder. Good stability of the shoulder.Peripheral, vascular, lymphatic examination, skin, neurologic coordination, reflexes, sensation are within normal limits. ASSESSMENTglenohumeral joint arthritis PLANTtaylor patient has done well with conservative management in regards to the shoulder. Continued conservative management recommended. Moderating activities with the upper extremity recommended also. After aseptic technique and consent the right shoulder (s) was injected intra-articularly with 2 cc of Kenalog. Channing Khan MD [address], [place], [address], [facility] 10/22/2024 13:49:32 01/21/2025 text/html REASON FOR VISITPatient comes to the office with known glenohumeral joint arthritis of the Right shoulder. The patient has done well with conservative management for their shoulder pain. Recently reports increasing discomfort over the past several weeks without injury. Pain is generalized about the shoulder and discomfort is noted at night. PAST MEDICAL/SURGICAL HISTORYCurrent medications per intake sheet. PHYSICAL FINDINGSThe patient is well appearing, in no apparent distress, alert and oriented to person, place and time. Gait is symmetric. No significant swelling, warmth or erythema about either shoulder.There is mild tenderness to palpation about the shoulder. Active range of motion of the shoulder is full with moderate pain through mid range manipulations. 4/5 strength of the shoulder. Good stability of the shoulder.Peripheral, vascular, lymphatic examination, skin, neurologic coordination, reflexes, sensation are within normal limits. ASSESSMENTglenohumeral joint arthritis PLANTtaylor patient has done well with conservative management in regards to the shoulder. Continued conservative management recommended. Moderating activities with the upper extremity recommended also. After aseptic technique and consent the right shoulder (s) was injected intra-articularly with 2 cc of Kenalog. Patient considering definitive right anatomic total shoulder arthroplasty has to wait until his cataract surgery in April 2025. Channing Khan MD [address], [place], [address], [facility] 01/21/2025 14:10:05 03/23/2025 text/html ROS as noted in the HPI Diagnosis: Osteoarthritis PIP joint right middle finger 74-year-old male who presents with pain in his bilateral hands most pronounced at the PIP joint of the right middle finger. He describes the pain as sharp and a 7 /10 in severity. Past family, medical, social history and review of systems has been reviewed, updated and is located in the patient s chart. Examination: Healthy appearing patient in no apparent distress. Alert and oriented. On the right middle finger. Well-preserved digital motion. Still pain in this region with attempts at motion. Gross deformity PIP joint. No atrophy in either upper extremity. Brisk capillary refill in all digits X-rays ordered, obtained, and reviewed today at [facility]: PA, lateral, oblique views of the bilateral hands reveal diffuse IP joint arthritis most pronounced at the right middle finger PIP joint. Plan: The patient and I discussed his situation at length. He would like to consider surgical intervention for his right middle finger PIP joint. Options include arthrodesis or arthroplasty. We reviewed the nature of the surgeries and the potential risks including infection, injury to blood vessels, tendons, nerves, failure of the procedure, malunion or nonunion of the arthrodesis and the potential need for hardware removal in the future. All his questions were answered. He will consider his options and contact me if he has questions or if he wishes to proceed with treatment. Joe Pfeiffer MD [address] [place] [address] [address], [place], [address], [facility] 03/23/2025 11:07:13 04/22/2025 text/html REASON FOR VISITPatient comes to the office with known glenohumeral joint arthritis of the Right shoulder. The patient has done well with conservative management for their shoulder pain. Recently reports increasing discomfort over the past several weeks without injury. Pain is generalized about the shoulder and discomfort is noted at night. PAST MEDICAL/SURGICAL HISTORYCurrent medications per intake sheet. PHYSICAL FINDINGSThe patient is well appearing, in no apparent distress, alert and oriented to person, place and time. Gait is symmetric. No significant swelling, warmth or erythema about either shoulder.There is mild tenderness to palpation about the shoulder. Active range of motion of the shoulder is full with moderate pain through mid range manipulations. 4/5 strength of the shoulder. Good stability of the shoulder.Peripheral, vascular, lymphatic examination, skin, neurologic coordination, reflexes, sensation are within normal limits. ASSESSMENTglenohumeral joint arthritis PLANThe patient has done well with conservative management in regards to the shoulder. Continued conservative management recommended. Moderating activities with the upper extremity recommended also. After aseptic technique and consent the right shoulder (s) was injected intra-articularly with 2 cc of Kenalog. Patient considering definitive right anatomic total shoulder arthroplasty has to wait until his cataract surgery in April 2025. Channing Khan MD [address] [place] [address] [address], [place], [address], [facility] [place] [facility] 04/22/2025 09:35:12 07/29/2025 text/html REASON FOR VISITPatient comes to the office with known glenohumeral joint arthritis of the Right shoulder. The patient has done well with conservative management for their shoulder pain. Recently reports increasing discomfort over the past several weeks without injury. Pain is generalized about the shoulder and discomfort is noted at night. PAST MEDICAL/SURGICAL HISTORYCurrent medications per intake sheet. PHYSICAL FINDINGSThe patient is well appearing, in no apparent distress, alert and oriented to person, place and time. Gait is symmetric. No significant swelling, warmth or erythema about either shoulder.There is mild tenderness to palpation about the shoulder. Active range of motion of the shoulder is full with moderate pain through mid range manipulations. 4/5 strength of the shoulder. Good stability of the shoulder.Peripheral, vascular, lymphatic examination, skin, neurologic coordination, reflexes, sensation are within normal limits. HEENT- unremarkableHeart -RRR without murmur's, rubs, gallopsAbdomen- soft non-tender, non distended, positive bowel signsLungs clear bilaterallyno skin lesionsintact light touch, distal pulses, and reflex ASSESSMENTglenohumeral joint arthritis PLANThe patient has done well with conservative management in regards to the shoulder. Continued conservative management recommended. Moderating activities with the upper extremity recommended also. After aseptic technique and consent the right shoulder (s) was injected intra-articularly with 2 cc of Kenalog. Patient considering definitive right anatomic total shoulder arthroplasty. Likely October 2025. Considering Guild versus outpatient surgical procedure based upon additional home health care needs that are likely to be required. Will discuss with his PCP and family and contact us in a short timeline to consider where to schedule his surgical procedure. Understands that if chest not is chosen it would likely be the 2nd or 3rd week of October.Today we had the opportunity to review with the patient the pathoanatomy. Discussed the surgical intervention proposed and its nonoperative alternatives. Reviewed today the risks, benefits, the expectations both of the surgical procedure and again its nonoperative alternatives. After reviewing appropriate treatment options patient would like to move towards scheduling. Informed consent was obtained in the office today. We will work towards scheduling hopefully within the next 30 days. ARC sling for postoperative immobilization The patient has weakness and instability of their extremity which requires stabalization for this semi-rigid/rigid orthosis to improve their funciton. Verbal and written instructions for the use and application of this item were given. Patient was instructed that should the brace result in increased pain, decreased sensation, increased swelling or an overall worsening of their medical condition, to please contact our office immediately. Channing Khan MD [address] [place], [place] [address]athan [address], [place], [address], [facility] - [facility] 07/29/2025 13:12:31
[2025-09-24 10:41] VITALS: BMI 20.6
[2025-09-28] VITALS (7 sets, daily range): BP systolic 106–173; BP diastolic 65–92; PULSE 67–91; RESP 10–20; TEMP 36.3–36.6; O2SAT 95–98; BMI 20.5
[2025-09-28] MEDS: Lactated Ringers 1,000 ML 100 ML IVCONT (08:45)
--- NOTE | 2025-09-28 09:23 | MHC.SHP ---
Pre-Procedural Eval Section A - 24 Hr Update-Section A only Date of Service: 09/28/25 The patient is an INPATIENT: No Changes since office visit: No Cold of Flu in the past 2 weeks, No New Medical Problems, No Changes in Medication and No Patient answered all questions The patient has been examined within 24 hours of the surgical procedure. The History & Physical has been completed within 30 days and I have reviewed it.: Yes Section B - Complete if H&P > 30 days Chief Complaint: Chronic prostatitis,Chronic pain syndrome Details of Present Illness: Pelvic floor Botox injection with EMG Allergies: Allergies Allergy/AdvReac Type Severity Reaction Status Date / Time duloxetine (From Cymbalta) Allergy Mild Unknown Verified 07/14/25 09:51 celecoxib (From Celebrex) Allergy Abdominal Verified 09/24/25 10:39 Pain cephalexin Allergy Abdominal Verified 09/24/25 10:39 Pain tetracycline Allergy Gastrointestinal Verified 09/24/25 10:39 Hemorrhage Plan I have reviewed the history and physical and performed a pertinent physical examination on my patient. No changes have occurred unless specified. Time Spent With Patient Time: Total time managing care of this patient today ____ minutes.
--- NOTE | 2025-09-28 10:18 | P.OP_ITS ---
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 Procedure: After informed consent was verified the patient was brought to the operating room and placed in a supine position. Anesthesia was administered per protocol. These patients have significant pelvic plane and as such recommendation for TIVA. The patient was placed in a modified dorsal lithotomy position and prepped and draped in a sterile fashion. Safety pause time-out was performed. Antibiotics being given. 150 units of Botox was reconstituted in 15 cc of 0.5% ropivacaine solution. Using a nerve stimulator with settings of 2 hertz and 1 milliamp a 80 mm 22 gauge nerve stimulator needle with tubing was used. The left obturator internus muscle was palpated on the pelvic sidewall of the obturator foramen with a forefinger. The muscle was held against the obturator foramen between the fingers vaginally in the thumb externally. The needle was inserted at approximately adductor longus insertion close to the groin crease aiming for the obturator foramen. A 100 mm linear ray transducer was positioned in the transverse sagittal plane at the level of the inguinal crease over the anterior pubic rami. The obturator internus muscle was seen as was the obturator foramen. The needle was introduced into the obturator internu s. Myofascial twitching was felt using the nerve stimulator. 7 cc of the Botox injection was then inserted at 3 sites of the obturator internus muscle. Injection technique was started at the lower edge of the muscle and moved upwards. A similar procedure was repeated on the right-hand side. The patient tolerated the procedure well was extubated and transferred in stable condition from the operating room. Pathology: Drains:
== END 2025-09-28 11:54 | disposition home or self-care (01) ==
PROVIDERS: PCP Internal Medicine; Visit Provider Urology
PROC: 3E0K8GC Introduction of Other Therapeutic Substance into Genitourinary Tract, Via Natural or Artificial Opening Endoscopic (ICD-10-PCS; CPT 52287; principal; 2025-09-28 09:50)
DX: N41.1 Chronic prostatitis (principal); G89.4 Chronic pain syndrome; R10.23 Pelvic and perineal pain bilateral; N40.1 Benign prostatic hyperplasia with lower urinary tract symptoms; R39.12 Poor urinary stream; R39.15 Urgency of urination; M99.05 Segmental and somatic dysfunction of pelvic region; G47.33 Obstructive sleep apnea (adult) (pediatric); Z79.899 Other long term (current) drug therapy; Z88.8 Allergy status to other drugs, medicaments and biological substances
CPT/HCPCS: 20552; 76857; J0585; J1956; J2250; J2405; J2704; J3010

== ENCOUNTER → 2025-09-28 08:15 | Outpatient (BNV) | payer MEDICARE, SELFPAY | PROVIDERS: PCP Internal Medicine; Visit Provider Urology | DX: R35.0 Frequency of micturition (principal) | CPT/HCPCS: 64647; 76942; 95874 ==

== ENCOUNTER → 2025-10-12 09:47 | Outpatient (BNVA) | payer MEDICARE, SELFPAY | PROVIDERS: Visit Provider Urology | DX: G89.4 Chronic pain syndrome (principal); N41.1 Chronic prostatitis; R39.12 Poor urinary stream | CPT/HCPCS: 51798 ==